=== PATIENT | female | born 1940 | race Caucasian/White ===

== ENCOUNTER 2017-03-12 09:53 | Inpatient (IN) | payer MEDICARE, BC ==
[2017-03-12] MEDS ORDERED: predniSONE 20 MG Tab PO ONE (10:59)
[2017-03-12] MEDS ORDERED: HYDROmorphone 1 MG/ML Syringe IM ONE ×2 (10:59→12:54)
[2017-03-12] MEDS ORDERED: Cyclobenzaprine 10 MG Tab PO ONE (11:42)
[2017-03-12] MEDS ORDERED: Acetaminophen 325 MG Tab PO ONE (11:42)
[2017-03-12] MEDS ORDERED: LORazepam 0.5 MG Tab PO ONE (12:54)
--- NOTE | 2017-03-12 13:41 | EDM.PDOC ---
ED HPI GENERAL MEDICAL PROBLEM - General Chief Complaint: Back Pain or Injury Stated Complaint: [facility] Time Seen by Provider: 03/12/17 10:46 Source of Information: Reports: Patient, RN Notes Reviewed - History of Present Illness INITIAL COMMENTS - FREE TEXT/NARRATIVE: 76-year-old female comes in with severe right low back pain. She had onset of pain yesterday afternoon that has become much worse last evening through the night and this morning. The pain starts in the right low back and radiates down the right lower extremity to the knee. The pain is worse with certain positions but she is not able to obtain a position of complete pain relief. She did try some Motrin at home this morning. That has not helped. She also took a different family members muscle relaxant and that also did not give any meaningful relief. No fever or chills. No bladder symptomatology. No abdominal pain. 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 (see below) Other Treatments MIXING OPERATOR: ibuprofen Lower Back Pain Score (Numeric/FACES): 4 - Related Data Allergies Allergy/AdvReac Type Severity Reaction Status Date / Time No Known Allergies Allergy Verified 03/12/17 10:01 Home Meds: Home Meds Levothyroxine 112 mcg PO DAILY 08/24/14 [History] Past Medical History HEENT History: Reports: Other (See Below) Other HEENT History: dentures Cardiovascular History: Reports: Other (See Below) Other Cardiovascular History: lower extremity edema, palpitations Respiratory History: Reports: SOB Other Respiratory History: mild to moderate snoring Gastrointestinal History: Reports: Inflammatory Bowel Disease Genitourinary History: Reports: None Musculoskeletal History: Reports: Other (See Below) Other Musculoskeletal History: sciatica pain Neurological History: Reports: None Psychiatric History: Reports: ADHD Endocrine/Metabolic History: Reports: Hypothyroidism - Past Surgical History Female Surgical History: Reports: Hysterectomy Musculoskeletal Surgical History: Reports: Knee Replacement, Shoulder Surgery, Other (See Below) Social & Family History - Tobacco Use Smoking Status *Q: Never Smoker Second Hand Smoke Exposure: No - Caffeine Use Caffeine Use: Reports: Coffee, Soda - Alcohol Use Days Per Week of Alcohol Use: 2 - Recreational Drug Use Recreational Drug Use: No ED ROS GENERAL - Review of Systems Review Of Systems: See Below Constitutional: Denies: Fever, Chills HEENT: Denies: Throat Pain Respiratory: Denies: Shortness of Breath, Wheezing Cardiovascular: Denies: Chest Pain GI/Abdominal: Denies: Abdominal Pain, Nausea, Vomiting : Reports: No Symptoms Musculoskeletal: Reports: Back Pain (Right low back pain), Leg Pain (Right leg) Skin: Reports: No Symptoms Neurological: Denies: Numbness, Tingling, Difficulty Walking, Weakness ED EXAM,LOWER BACK PAIN/INJURY - Physical Exam Exam: See Below General Appearance: Alert, No Apparent Distress Eye Exam: Bilateral Eye: PERRL Throat/Mouth: Normal Inspection Head: Atraumatic Neck: Supple, Full Range of Motion Respiratory/Chest: No Respiratory Distress, Lungs Clear, Normal Breath Sounds Cardiovascular: Regular Rate, Rhythm GI/Abdominal: Soft, Non-Tender Back Exam: Other (Tender right low back). No: Paraspinal Tenderness, Vertebral Tenderness Extremities: Other (Pain with straight leg raising right lower extremity). No: Leg Pain, Redness Neurological: Alert, Oriented x 3, Straight Leg Raise (R) (Pain with straight leg raising on the right) Skin Exam: Warm, Dry, Normal Color Course - Vital Signs Last Recorded V/S: Last Vital Signs Temp 98.1 F 03/12/17 10:01 Pulse 78 03/12/17 10:01 Resp 20 03/12/17 10:01 BP 156/68 H 03/12/17 10:01 Pulse Ox 93 L 03/12/17 10:01 - Orders/Labs/Meds Meds: Medications Discontinued Medications Generic Name Dose Route Start Last Admin Trade Name Evy PRN Reason Stop Dose Admin Acetaminophen 975 mg 03/12/17 11:42 03/12/17 11:46 Tylenol PO 03/12/17 11:43 975 mg NOW ONE Administration Cyclobenzaprine HCl 10 mg 03/12/17 11:42 03/12/17 11:46 Flexeril PO 03/12/17 11:43 10 mg ONETIME ONE Administration Hydromorphone HCl 1 mg 03/12/17 10:59 03/12/17 11:09 Dilaudid IM 03/12/17 11:00 1 mg ONETIME ONE Administration Hydromorphone HCl 1 mg 03/12/17 12:54 03/12/17 13:01 Dilaudid IM 03/12/17 12:55 1 mg ONETIME ONE Administration Lorazepam 0.5 mg 03/12/17 12:54 03/12/17 13:00 Ativan PO 03/12/17 12:55 0.5 mg ONETIME ONE Administration Prednisone 40 mg 03/12/17 10:59 03/12/17 11:07 Prednisone PO 03/12/17 11:00 40 mg ONETIME ONE Administration - Re-Assessments/Exams Free Text/Narrative Re-Assessment/Exam: 03/12/17 13:00. The pain extremely difficult time getting control of her discomfort. She had initially been given Dilaudid 1 mg IM along with prednisone 40 mg by mouth. That did not seem to give her any meaningful relief. We then followed with Tylenol 975 by mouth Flexeril 10 mg by mouth. That also gave very minimal relief from baseline on arrival. We have further given Dilaudid 1 mg IM and Ativan 0.5 mg by mouth. 03/12/17 14:50. Patient finally is looking somewhat more comfortable while lying in bed. We did get her up to stand a short time ago and she did struggle with that. Was able to stand and take a few his steps with assistance but did have a lot of discomfort in the right low back with continue radiation to the leg. She is reported to become diaphoretic. Therefore she was allowed to get back to bed rest. Patient does demonstrate a willingness to try go home. However she does live 60 miles from here. Family that is here with her is extremely concerned about how they're going to manage at home when it is been this difficult to get her pain under control here in the ED. Therefore admission for pain management and to figure out a regimen that will be appropriate for her outpatient basis has been arranged. It is expected that this will be an observation status admission. Departure - Departure Time of Disposition: 14:53 Disposition: Admitted As Inpatient 66 Condition: Fair Clinical Impression: Sciatica Qualifiers: Laterality: right Qualified Code(s): M54.31 - Sciatica, right side - Discharge Information Referrals: Yana May ENT CONSULTANT [Primary Care Provider] - Forms: ED Department Discharge ED Communication - Discussed Case With (1) Discussed Case With (1): Admitting Provider (Dr Horta, decision to admit at about 14:35.)
[2017-03-12] MEDS ORDERED: Ondansetron 4 MG/2 ML SDV IVPUSH PRN (16:57)
[2017-03-12] MEDS: HYDROmorphone 1 MG/ML Syringe IVPUSH PRN (17:13)
[2017-03-12] MEDS ORDERED: Sodium Chloride 0.9% 1,000 ML ONE (17:24)
[2017-03-12] MEDS ORDERED: LORazepam 2 MG/ML MDV IVPUSH PRN (17:24)
[2017-03-12] MEDS: Pantoprazole 40 MG Tab.CR PO SCH (17:24)
[2017-03-12] MEDS: fentaNYL 12 MCG/HR Transdermal Patch TRDERM SCH (17:25)
[2017-03-12] MEDS: methylPREDNISolone Sodium Succinate 125 MG/2 ML SDV IVPUSH SCH (17:25)
[2017-03-12] MEDS ORDERED: Sodium Chloride 0.45% 1,000 ML IV SCH (17:30)
--- NOTE | 2017-03-12 17:35 | PCM.HP ---
H&P History of Present Illness - General Date of Service: 03/12/17 Admit Problem/Dx: Admission Diagnosis/Problem Admission Diagnosis/Problem Sciatica Source of Information: Family, Provider History Limitations: Reports: No Limitations - History of Present Illness Initial Comments - Free Text/Narative: 76 year old female with new onset back pain. No recent trauma, has recently had an MRI for assessment of right knee. She reports waking up with pain 1 day prior to admission. The medical regimen in the ED was unsuccessful controlling her pain. She will be admitted to observation. She denied abdominal pain but appears to be restless, is unable to get comfortable. Onset of Symptoms: Reports: Sudden Symptom Onset Date: 03/11/17 Duration of Symptoms: Reports: Hour(s):, Getting Worse Location: Reports: Back Severity: Moderate Improves with: Reports: Medication Worsens with: Reports: Movement Lower Back Pain Score (Numeric/FACES): 4 - Related Data Allergies/Adverse Reactions: Allergies Allergy/AdvReac Type Severity Reaction Status Date / Time No Known Allergies Allergy Verified 03/12/17 16:55 Home Medications: Home Meds Levothyroxine 112 mcg PO DAILY 08/24/14 [History] Ibuprofen 800 mg PO TID PRN 03/12/17 [History] Metaxalone 800 mg PO TID PRN 03/12/17 [History] Past Medical History HEENT History: Reports: Other (See Below) Other HEENT History: dentures Cardiovascular History: Reports: Other (See Below) Other Cardiovascular History: lower extremity edema, palpitations Respiratory History: Reports: SOB Other Respiratory History: mild to moderate snoring Gastrointestinal History: Reports: Inflammatory Bowel Disease Genitourinary History: Reports: None Musculoskeletal History: Reports: Other (See Below) Other Musculoskeletal History: sciatica pain Neurological History: Reports: None Psychiatric History: Reports: ADHD Endocrine/Metabolic History: Reports: Hypothyroidism - Past Surgical History Female Surgical History: Reports: Hysterectomy Musculoskeletal Surgical History: Reports: Knee Replacement, Shoulder Surgery, Other (See Below) Social & Family History - Tobacco Use Smoking Status *Q: Never Smoker Second Hand Smoke Exposure: No - Caffeine Use Caffeine Use: Reports: Coffee, Soda - Alcohol Use Days Per Week of Alcohol Use: 2 - Recreational Drug Use Recreational Drug Use: No H&P Review of Systems - Review of Systems: Review Of Systems: See Below General: Reports: Weakness HEENT: Reports: No Symptoms Pulmonary: Reports: No Symptoms Cardiovascular: Reports: No Symptoms Gastrointestinal: Reports: No Symptoms Genitourinary: Reports: No Symptoms Musculoskeletal: Reports: Back Pain, Leg Pain Skin: Reports: No Symptoms Psychiatric: Reports: No Symptoms Neurological: Reports: No Symptoms Hematologic/Lymphatic: Reports: No Symptoms Immunologic: Reports: No Symptoms Exam - Exam Exam: See Below - Vital Signs Vital Signs: Last Vital Signs Temp 36.2 C 03/12/17 16:16 Pulse 70 03/12/17 16:02 Resp 18 03/12/17 16:02 BP 102/76 03/12/17 17:29 Pulse Ox 96 03/12/17 16:02 Weight: 77.111 kg - Exam General: Alert, Oriented, Cooperative HEENT: Nares Patent, Normal Nasal Septum, Pupils Equal, Pupils Reactive Lungs: Normal Respiratory Effort, Decreased Breath Sounds Cardiovascular: Regular Rate, Regular Rhythm GI/Abdominal Exam: Normal Bowel Sounds, Soft, Non-Tender, No Organomegaly, No Distention (Female) Exam: Deferred Rectal (Female) Exam: Deferred Back Exam: Normal Inspection, CVA Tenderness (L) (no), CVA Tenderness (R) (no), Muscle Spasm (lumbar) Extremities: Normal Inspection Skin: Warm Neurological: Cranial Nerves Intact Neuro Extensive - Mental Status: Alert, Oriented x3 Neuro Extensive - Motor, Sensory, Reflexes: CN II-XII Intact Psychiatric: Alert - Patient Data Result Diagrams: 03/12/17 18:05 03/12/17 18:05 *Q Meaningful Use (ADM) - VTE *Q VTE Criteria *Q: - Stroke *Q Stroke Criteria *Q: - AMI *Q AMI Criteria *Q: - Problem List (1) Back pain of lumbar region with sciatica SNOMED Code(s): 084695012 ICD Code: M54.40 - LUMBAGO WITH SCIATICA, UNSPECIFIED SIDE Status: Acute Current Visit: Yes (2) Hypothyroid SNOMED Code(s): 54373641 ICD Code: E03.9 - HYPOTHYROIDISM, UNSPECIFIED Status: Acute Current Visit : Yes (3) SRINI (obstructive sleep apnea) SNOMED Code(s): 81903101 ICD Code: G47.33 - OBSTRUCTIVE SLEEP APNEA (ADULT) (PEDIATRIC) Status: Acute Current Visit: Yes Problem List Initiated/Reviewed/Updated: Yes Orders Last 24hrs: Active Orders 24 hr Category Date Time Status Patient Status [ADT] Routine ADT 03/12/17 15:49 Active Activity as Tolerated [RC] .Routine Care 03/12/17 17:09 Active Vital Signs [RC] Q4HR Care 03/12/17 17:08 Active Heart Healthy Diet [DIET] Diet 03/12/17 Dinner Active Ang Abdomen [CT] Urgent Exams 03/12/17 17:31 Ordered CTA Abdomen W & W/O Contrast [Ang Abdomen] [CT] Routine Exams 03/12/17 17:23 Stop Req BASIC METABOLIC PANEL,BMP [CHEM] DAILY Lab 03/13/17 05:00 Ordered BASIC METABOLIC PANEL,BMP [CHEM] DAILY Lab 03/14/17 05:00 Ordered BASIC METABOLIC PANEL,BMP [CHEM] DAILY Lab 03/15/17 05:00 Ordered BASIC METABOLIC PANEL,BMP [CHEM] DAILY Lab 03/16/17 05:00 Ordered CBC WITH AUTO DIFF [HEME] Routine Lab 03/12/17 18:00 Ordered CMP [COMPREHENSIVE METABOLIC PN,CMP] [CHEM] Routine Lab 03/12/17 18:00 Ordered CRP [C-REACTIVE PROTEIN] [CHEM] Routine Lab 03/13/17 05:00 Ordered MAGNESIUM [CHEM] Routine Lab 03/12/17 18:00 Ordered TSH [CHEM] Routine Lab 03/13/17 05:00 Ordered URINALYSIS W/MICROSCOPIC [UA W/MICROSCOPIC] [URIN] Lab 03/12/17 16:57 Uncollected Routine HYDROmorphone [Dilaudid] Med 03/12/17 16:54 Active 1 mg IVPUSH Q6H PRN LORazepam [Ativan] Med 03/12/17 17:24 Active 1 mg IVPUSH Q8H PRN Levothyroxine Med 03/13/17 06:00 Active 112 mcg PO ACBRK Ondansetron [Zofran] Med 03/12/17 16:57 Active 4 mg IVPUSH Q8H PRN Pantoprazole [ProTONIX] Med 03/12/17 17:00 Active 40 mg PO BIDAC Remove Patch Med 03/15/17 17:00 Active 1 ea TRDERM Q72H Sodium Chloride 0.9% [Normal Saline] 1,000 ml Med 03/12/17 17:45 Ordered IV ASDIRECTED fentaNYL [Duragesic] Med 03/12/17 17:00 Active 12 mcg TRDERM Q72H methylPREDNISolone Sod Succ [Solu-MEDROL] Med 03/12/17 17:00 Active 125 mg IVPUSH Q8H Resuscitation Status Routine Resus Stat 03/12/17 16:55 Ordered Medication Orders Fentanyl (Duragesic) 12 mcg TRDERM Q72H JENNY Last Admin: 03/12/17 17:25 Dose: 12 mcg Hydromorphone HCl (Dilaudid) 1 mg IVPUSH Q6H PRN PRN Reason: Pain (moderate 4-6) Last Admin: 03/12/17 17:13 Dose: 1 mg Sodium Chloride (Normal Saline) 1,000 mls @ 999 mls/hr IV ASDIRECTED JENNY Levothyroxine Sodium (Levothyroxine) 112 mcg PO ACBRK JENNY Lorazepam (Ativan) 1 mg IVPUSH Q8H PRN PRN Reason: Anxiety Methylprednisolone Sodium Succinate (Solu-Medrol) 125 mg IVPUSH Q8H [facility] Last Admin: 03/12/17 17:25 Dose: 125 mg Miscellaneous Information (Remove Patch) 1 ea TRDERM Q72H [facility] Ondansetron HCl (Zofran) 4 mg IVPUSH Q8H PRN PRN Reason: Nausea/Vomiting Pantoprazole Sodium (Protonix) 40 mg PO BIDAC [facility] Last Admin: 03/12/17 17:24 Dose: 40 mg Assessment/Plan Comment:: Impression: Atypical back pain with restlessness Intractible pain Lab studies have been ordered Chronic Hypothyroidism Plan: Labs on admission IVF 2 liters wide open prep for CTA CTA of aorta re: possible AAA Narcotics/analgesics as needed IV steroid Muscle relaxer SW/PT/OT
[2017-03-12] MEDS: Sodium Chloride 0.9% 1,000 ML IV SCH ×3 (17:46→20:57)
[2017-03-12] MEDS ORDERED: Iopamidol 755 Mg/ML 100 ML Bottle IVPUSH ONE (18:01)
[2017-03-12] MEDS ORDERED: Sodium Chloride 0.9% 10 ML Syringe FLUSH PRN (18:01)
[2017-03-12] MEDS ORDERED: Sodium Chloride 0.9% 100 ML IV SCH (18:15)
[2017-03-12] MEDS: Cyclobenzaprine 10 MG Tab PO PRN (18:59)
--- NOTE | 2017-03-12 19:01 | CT ---
CT chest Technique: Multiple axial sections through the chest are obtained. Intravenous contrast was utilized. Comparison: No prior chest CT, prior chest x-ray of 08/03/16. Findings: Very slight coronary artery calcification is seen. Fluid is seen within the esophagus compatible with reflux. No pericardial thickening is seen. Aorta shows no aneurysm or dissection. Mediastinum and hilar regions show no adenopathy or mass. No axillary adenopathy is seen. Mild atelectasis noted within both lung bases. Lungs otherwise are clear. Bone window settings were reviewed which shows a mild anterior wedge deformity of T6 as well as degenerative disc space narrowing within the lower cervical spine. No acute bony abnormality is seen. Impression: 1. Incidental findings as noted above. No acute abnormality seen. No thoracic aortic aneurysm or thoracic aortic dissection is seen. Diagnostic code #2 CT abdomen and pelvis Technique: Multiple axial sections were obtained from above the dome of the diaphragm inferiorly through the pubic symphysis. Intravenous contrast was utilized. No oral contrast has been given. Comparison: No prior CT exam. Findings: CHD and CBD are mildly dilated as well as mild dilatation of the intrahepatic ducts. Gallbladder is not seen which presumably is due to cholecystectomy although no surgical clips are seen to confirm cholecystectomy, please correlate. Spleen appears within normal limits. Liver shows no focal parenchymal abnormality. Adrenal glands show no nodule. Kidneys show symmetric contrast enhancement without hydronephrosis or mass. Mild arterial calcification is seen within the kidneys. Adrenal glands show no nodule. Pancreas shows atrophy. Aorta shows atherosclerotic change without aneurysmal dilatation. No abdominal aortic aneurysm is seen. No retroperitoneal adenopathy or mesenteric abnormalities are seen. Appendix is not visualized with certainty. Scoliosis and mild degenerative change is noted within the spine. Severe disc space narrowing and vacuum phenomena is seen within the L5-S1 disc. No pelvic mass or adenopathy is seen. Minimal scattered diverticuli are seen within the sigmoid colon. Impression: 1. No abdominal aortic aneurysm or dissection is seen. 2. Intrahepatic and extrahepatic biliary duct dilatation. Gallbladder not seen but no cholecystectomy surgical clips are seen and please correlate. Please exclude any symptoms or signs of bile duct obstruction. If any further questions remain, MRCP could be considered. 3. Other incidental findings as described above. Diagnostic code #3
[2017-03-12] MEDS ORDERED: Sodium Chloride 0.9% 1,000 ML IV SCH (19:44)
[2017-03-12] MEDS: Acetaminophen/HYDROcodone 325-10 MG Tab PO PRN (20:58)
[2017-03-13] MEDS: Acetaminophen/HYDROcodone 325-10 MG Tab PO PRN ×5 (00:39→20:24)
[2017-03-13] MEDS: methylPREDNISolone Sodium Succinate 125 MG/2 ML SDV IVPUSH SCH ×3 (00:40→17:05)
[2017-03-13] MEDS: Pantoprazole 40 MG Tab.CR PO SCH ×2 (06:10→15:44)
[2017-03-13] MEDS: Cyclobenzaprine 10 MG Tab PO PRN ×2 (06:10→14:05)
[2017-03-13] MEDS: Levothyroxine 112 MCG Tab **OWN MED PO SCH (06:11)
[2017-03-13] MEDS: HYDROmorphone 1 MG/ML Syringe IVPUSH PRN ×2 (08:58→22:27)
--- NOTE | 2017-03-13 09:36 | PCM.PN ---
- General Info Date of Service: 03/13/17 Functional Status: Reports: Pain Controlled (mild), Ambulating (minimal) - Review of Systems General: Reports: No Symptoms HEENT: Reports: No Symptoms Pulmonary: Reports: No Symptoms Cardiovascular: Reports: No Symptoms Gastrointestinal: Reports: No Symptoms Genitourinary: Reports: No Symptoms Musculoskeletal: Reports: No Symptoms Skin: Reports: No Symptoms Neurological: Reports: Difficulty Walking (back pain) Psychiatric: Reports: No Symptoms - Patient Data Vitals - Most Recent: Last Vital Signs Temp 36.7 C 03/13/17 04:42 Pulse 89 03/13/17 04:42 Resp 16 03/13/17 04:42 BP 136/62 03/13/17 04:42 Pulse Ox 93 L 03/13/17 04:42 Weight - Most Recent: 78.97 kg I&O - Last 24 Hours: Intake & Output 03/12/17 03/13/17 03/13/17 22:59 06:59 14:59 Intake Total 825 Output Total 325 Balance 500 Lab Results Last 24 Hours: Laboratory Results - last 24 hr 03/12/17 03/12/17 03/13/17 Range/Units 18:05 18:05 00:30 WBC 9.75 (3.98-10.04) K/mm3 RBC 4.54 (3.98-5.22) M/mm3 Hgb 14.3 (11.2-15.7) gm/L Hct 43.1 (34.1-44.9) % MCV 94.9 H (79.4-94.8) fl MCH 31.5 (25.6-32.2) pg MCHC 33.2 (32.2-35.5) g/dl RDW Std Deviation 43.3 (36.4-46.3) fL Plt Count 328 (182-369) K/mm3 MPV 9.1 L (9.4-12.3) fl Neut % (Auto) 86.2 H (34.0-71.1) % Lymph % (Auto) 9.0 L (19.3-51.7) % [place] % (Auto) 4.3 L (4.7-12.5) % Eos % (Auto) 0.1 L (0.7-5.8) Baso % (Auto) 0.2 (0.1-1.2) % Neut # (Auto) 8.40 H (1.56-6.13) K/mm3 Lymph # (Auto) 0.88 L (1.18-3.74) K/mm3 [place] # (Auto) 0.42 H (0.24-0.36) K/mm3 Eos # (Auto) 0.01 L (0.04-0.36) K/mm3 Baso # (Auto) 0.02 (0.01-0.08) K/mm3 Manual Slide Review Normal smear Sodium 142 (136-145) mEq/L Potassium 3.8 (3.5-5.1) mEq/L Chloride 107 (98-107) mEq/L Carbon Dioxide 25 (21-32) mEq/L Anion Gap 13.8 (5-15) BUN 16 (7-18) mg/dL Creatinine 0.9 (0.55-1.02) mg/dL Est Cr Clr Drug Dosing 47.85 mL/min Estimated GFR (MDRD) > 60 (>60) mL/min BUN/Creatinine Ratio 17.8 (14-18) Glucose 118 H (83-115) mg/dL Calcium 8.7 (8.5-10.1) mg/dL Magnesium 2.0 (1.8-2.4) mg/dl Total Bilirubin 0.7 (0.2-1.0) mg/dL AST 33 (15-37) U/L ALT 40 (14-59) U/L Alkaline Phosphatase 86 (46-116) U/L C-Reactive Protein (<1.0) mg/dL Total Protein 6.8 (6.4-8.2) g/dl Albumin 3.4 (3.4-5.0) g/dl Globulin 3.4 gm/dL Albumin/Globulin Ratio 1.0 (1-2) TSH 3rd Generation (0.358-3.74) uIU/mL Urine Color Yellow (Yellow) Urine Appearance Clear (Clear) Urine pH 6.0 (5.0-8.0) Ur Specific [place] 1.020 (1.005-1.030) Urine Protein Negative (Negative) Urine Glucose (UA) Negative (Negative) Urine Ketones 2+ H (Negative) Urine Occult Blood Trace-lysed H (Negative) Urine Nitrite Negative (Negative) Urine Bilirubin Negative (Negative) Urine Urobilinogen 0.2 (0.2-1.0) Ur Leukocyte Esterase Negative (Negative) Urine RBC 0-5 (0-5) /hpf Urine WBC Not seen (0-5) /hpf Ur Epithelial Cells 5-10 H (0-5) /hpf Urine Bacteria Not seen (FEW) /hpf Urine Mucus Few (FEW) /hpf 03/13/17 Range/Units 05:53 WBC (3.98-10.04) K/mm3 RBC (3.98-5.22) M/mm3 Hgb (11.2-15.7) gm/L Hct (34.1-44.9) % MCV (79.4-94.8) fl MCH (25.6-32.2) pg MCHC (32.2-35.5) g/dl RDW Std Deviation (36.4-46.3) fL Plt Count (182-369) K/mm3 MPV (9.4-12.3) fl Neut % (Auto) (34.0-71.1) % Lymph % (Auto) (19.3-51.7) % [place] % (Auto) (4.7-12.5) % Eos % (Auto) (0.7-5.8) Baso % (Auto) (0.1-1.2) % Neut # (Auto) (1.56-6.13) K/mm3 Lymph # (Auto) (1.18-3.74) K/mm3 [place] # (Auto) (0.24-0.36) K/mm3 Eos # (Auto) (0.04-0.36) K/mm3 Baso # (Auto) (0.01-0.08) K/mm3 Manual Slide Review Sodium 140 (136-145) mEq/L Potassium 3.6 (3.5-5.1) mEq/L Chloride 105 (98-107) mEq/L Carbon Dioxide 23 (21-32) mEq/L Anion Gap 15.6 H (5-15) BUN 17 (7-18) mg/dL Creatinine 0.8 (0.55-1.02) mg/dL Est Cr Clr Drug Dosing 53.83 mL/min Estimated GFR (MDRD) > 60 (>60) mL/min BUN/Creatinine Ratio 21.3 H (14-18) Glucose 129 H (83-115) mg/dL Calcium 8.4 L (8.5-10.1) mg/dL Magnesium (1.8-2.4) mg/dl Total Bilirubin (0.2-1.0) mg/dL AST (15-37) U/L ALT (14-59) U/L Alkaline Phosphatase (46-116) U/L C-Reactive Protein 0.3 (<1.0) mg/dL Total Protein (6.4-8.2) g/dl Albumin (3.4-5.0) g/dl Globulin gm/dL Albumin/Globulin Ratio (1-2) TSH 3rd Generation 0.468 (0.358-3.74) uIU/mL Urine Color (Yellow) Urine Appearance (Clear) Urine pH (5.0-8.0) Ur Specific [place] (1.005-1.030) Urine Protein (Negative) Urine Glucose (UA) (Negative) Urine Ketones (Negative) Urine Occult Blood (Negative) Urine Nitrite (Negative) Urine Bilirubin (Negative) Urine Urobilinogen (0.2-1.0) Ur Leukocyte Esterase (Negative) Urine RBC (0-5) /hpf Urine WBC (0-5) /hpf Ur Epithelial Cells (0-5) /hpf Urine Bacteria (FEW) /hpf Urine Mucus (FEW) /hpf Med Orders - Current: Current Medications Hydrocodone Bitart/Acetaminophen ([place] 325-10 Mg) 1 tab PO Q4H PRN PRN Reason: Pain Last Admin: 03/13/17 06:10 Dose: 1 tab Cyclobenzaprine HCl (Flexeril) 10 mg PO Q8H PRN PRN Reason: Muscle Spasm Last Admin: 03/13/17 06:10 Dose: 10 mg Fentanyl (Duragesic) 12 mcg TRDERM Q72H [facility] Last Admin: 03/12/17 17:25 Dose: 12 mcg Hydromorphone HCl (Dilaudid) 1 mg IVPUSH Q6H PRN PRN Reason: Pain (moderate 4-6) Last Admin: 03/13/17 08:58 Dose: 1 mg Sodium Chloride (Normal Saline) 1,000 mls @ 75 mls/hr IV ASDIRECTED [facility] Last Admin: 03/12/17 20:57 Dose: 75 mls/hr Levothyroxine Sodium (Levothyroxine) 112 mcg PO ACBRK [facility] Last Admin: 03/13/17 06:11 Dose: 112 mcg Lorazepam (Ativan) 1 mg IVPUSH Q8H PRN PRN Reason: Anxiety Methylprednisolone Sodium Succinate (Solu-Medrol) 125 mg IVPUSH Q8H [facility] Last Admin: 03/13/17 08:58 Dose: 125 mg Miscellaneous Information (Remove Patch) 1 ea TRDERM Q72H [facility] Ondansetron HCl (Zofran) 4 mg IVPUSH Q8H PRN PRN Reason: Nausea/Vomiting Pantoprazole Sodium (Protonix) 40 mg PO BIDAC [facility] Last Admin: 03/13/17 06:10 Dose: 40 mg Sodium Chloride (Saline Flush) 10 ml FLUSH ONETIME PRN PRN Reason: IV FLUSH Last Admin: 03/12/17 19:23 Dose: 10 ml Discontinued Medications Acetaminophen (Tylenol) 975 mg PO NOW ONE Stop: 03/12/17 11:43 Last Admin: 03/12/17 11:46 Dose: 975 mg Cyclobenzaprine HCl (Flexeril) 10 mg PO ONETIME ONE Stop: 03/12/17 11:43 Last Admin: 03/12/17 11:46 Dose: 10 mg Hydromorphone HCl (Dilaudid) 1 mg IM ONETIME ONE Stop: 03/12/17 11:00 Last Admin: 03/12/17 11:09 Dose: 1 mg Hydromorphone HCl (Dilaudid) 1 mg IM ONETIME ONE Stop: 03/12/17 12:55 Last Admin: 03/12/17 13:01 Dose: 1 mg Sodium Chloride (Sodium Chloride 0.45%) 1,000 mls @ 999 mls/hr IV ASDIRECTED [facility] Sodium Chloride (Normal Saline) Confirm Administered Dose 1,000 mls @ as directed .ROUTE .STK-MED ONE Stop: 03/12/17 17:25 Last Admin: 03/12/17 17:46 Dose: Not Given Sodium Chloride (Normal Saline) 1,000 mls @ 999 mls/hr IV ASDIRECTED [facility] Stop: 03/13/17 18:46 Last Admin: 03/12/17 18:59 Dose: 999 mls/hr Sodium Chloride (Normal Saline) 1,000 mls @ 150 mls/hr IV ASDIRECTED [facility] Sodium Chloride (Normal Saline) 100 mls @ 80 mls/hr IV ASDIRECTED [facility] Last Admin: 03/12/17 19:23 Dose: 80 mls/hr Iopamidol (Isovue-370 (76%)) 100 ml IVPUSH ONETIME ONE Stop: 03/12/17 18:02 Last Admin: 03/12/17 19:23 Dose: 100 ml Lorazepam (Ativan) 0.5 mg PO ONETIME ONE Stop: 03/12/17 12:55 Last Admin: 03/12/17 13:00 Dose: 0.5 mg Prednisone (Prednisone) 40 mg PO ONETIME ONE Stop: 03/12/17 11:00 Last Admin: 03/12/17 11:07 Dose: 40 mg - Exam Quality Assessment: Supplemental Oxygen, DVT Prophylaxis General: Alert, Oriented, Cooperative, Mild Distress HEENT: Pupils Equal, Pupils Reactive, EOMI Neck: Supple, Trachea Midline, No JVD Lungs: Normal Respiratory Effort Cardiovascular: Regular Rate, Regular Rhythm GI/Abdominal Exam: Normal Bowel Sounds, Soft, Non-Tender, No Organomegaly, No Distention (Female) Exam: Deferred Back Exam: Normal Inspection Extremities: Normal Inspection Skin: Warm Neurological: No New Focal Deficit Psy/Mental Status: Alert, Normal Affect, Normal Mood - Problem List & Annotations (1) Back pain of lumbar region with sciatica SNOMED Code(s): 037861775 Code(s): M54.40 - LUMBAGO WITH SCIATICA, UNSPECIFIED SIDE Status: Acute Current Visit: Yes (2) Hypothyroid SNOMED Code(s): 89529299 Code(s): E03.9 - HYPOTHYROIDISM, UNSPECIFIED Status: Acute Current Visit : Yes (3) SRINI (obstructive sleep apnea) SNOMED Code(s): 26577412 Code(s): G47.33 - OBSTRUCTIVE SLEEP APNEA (ADULT) (PEDIATRIC) Status: Acute Current Visit: Yes - Problem List Review Problem List Initiated/Reviewed/Updated: Yes - My Orders Last 24 Hours: My Active Orders 03/12/17 15:49 Patient Status [ADT] Routine 03/12/17 16:54 HYDROmorphone [Dilaudid] 1 mg IVPUSH Q6H PRN 03/12/17 16:55 Resuscitation Status Routine 03/12/17 16:57 Ondansetron [Zofran] 4 mg IVPUSH Q8H PRN 03/12/17 17:00 Pantoprazole [ProTONIX] 40 mg PO BIDAC fentaNYL [Duragesic] 12 mcg TRDERM Q72H methylPREDNISolone Sod Succ [Solu-MEDROL] 125 mg IVPUSH Q8H 03/12/17 17:08 Vital Signs [RC] Q4HR 03/12/17 17:09 Activity as Tolerated [RC] .Routine 03/12/17 17:24 LORazepam [Ativan] 1 mg IVPUSH Q8H PRN 03/12/17 17:50 Antiembolic Devices [RC] QSHIFT ZEE Hose [Antiembolic Hose] [OM.PC] Routine 03/12/17 18:01 Sodium Chloride 0.9% [Saline Flush] 10 ml FLUSH ONETIME PRN 03/12/17 18:38 Cyclobenzaprine [Flexeril] 10 mg PO Q8H PRN 03/12/17 20:07 Acetaminophen/HYDROcodone [[place] 325-10 MG] 1 tab PO Q4H PRN 03/12/17 20:45 Sodium Chloride 0.9% [Normal Saline] 1,000 ml IV ASDIRECTED 03/12/17 Dinner Heart Healthy Diet [DIET] 03/13/17 06:00 Levothyroxine 112 mcg PO ACBRK 03/13/17 08:00 Abdomen Comp [US] Routine 03/14/17 05:00 BASIC METABOLIC PANEL,BMP [CHEM] DAILY 03/15/17 05:00 BASIC METABOLIC PANEL,BMP [CHEM] DAILY 03/15/17 17:00 Remove Patch 1 ea TRDERM Q72H 03/16/17 05:00 BASIC METABOLIC PANEL,BMP [CHEM] DAILY - Plan Plan:: Impression: Atypical back pain with restlessness Intractable pain CTA negative for AAA Chronic Hypothyroidism Plan: Narcotics/analgesics as needed IV steroid Muscle relaxer SW/PT/OT
--- NOTE | 2017-03-13 11:47 | US ---
Abdominal ultrasound: Multiple real-time images of the abdomen were obtained. Comparison: Previous abdominal and pelvic CT exam of 03/12/17. Findings: Liver shows no focal parenchymal abnormality. Dilated common bile duct is seen up to 2.3 cm. Common hepatic duct measures 6 mm. Patient gave a history of prior cholecystectomy. Pancreas shows no discrete abnormality. Aorta shows no aneurysmal dilatation. Kidneys show no hydronephrosis or mass. Right kidney measures 9.9 cm in length. Left kidney measured 10.1 cm in length. Spleen size is normal. Inferior vena cava is patent. Portal vein is patent. Impression: 1. Dilated CBD at 2.3 cm. Etiology is not identified. 2. No additional abnormality is definitely seen on abdominal ultrasound. Diagnostic code #3
[2017-03-13] MEDS: Sodium Chloride 0.9% 1,000 ML IV SCH (17:06)
[2017-03-13] MEDS: Orphenadrine 100 MG Tab.ER PO SCH ×2 (18:15→20:26)
[2017-03-14] MEDS: methylPREDNISolone Sodium Succinate 125 MG/2 ML SDV IVPUSH SCH (01:19)
[2017-03-14] MEDS: Pantoprazole 40 MG Tab.CR PO SCH ×2 (05:33→16:08)
[2017-03-14] MEDS: Acetaminophen/HYDROcodone 325-10 MG Tab PO PRN ×3 (05:33→20:32)
[2017-03-14] MEDS: Levothyroxine 112 MCG Tab **OWN MED PO SCH (05:34)
[2017-03-14] MEDS ORDERED: Gabapentin 100 MG Cap PO ONE (06:23)
[2017-03-14] MEDS: Celecoxib 100 MG Cap PO SCH ×2 (08:08→20:32)
[2017-03-14] MEDS: tiZANidine 4 MG Tab PO PRN ×2 (08:31→16:08)
[2017-03-14] MEDS ORDERED: Sodium Chloride 0.9% 10 ML Syringe FLUSH SCH (11:15)
[2017-03-14] MEDS ORDERED: Gadobenate Dimeglumine 529 MG/ML 20 ML SDV IVPUSH ONE (12:00)
--- NOTE | 2017-03-14 14:02 | MR ---
MRI lumbar spine (without and with contrast) Technique: T1, T2 and T1 fat-suppressed post-gadolinium axial images were obtained from above the L1-L2 disc through the L5-S1 disc. T1, T2, fat-suppressed inversion recovery and T1 fat-suppressed post-gadolinium sagittal images were also obtained through the lumbar spine. Comparison: No previous lumbar spine imaging. Findings: T11-T12 and T12-L1: Posterior discs are preserved. No central canal stenosis or neural foraminal stenosis is seen. L1-L2: Posterior disc is preserved. No central canal stenosis or neural foraminal stenosis is seen. L2-L3: Mild degenerative apophyseal change is seen. Posterior disc is preserved. No central canal stenosis or neural foraminal stenosis is seen. L3-L4: Slight circumferential disc bulge is seen. Posterior disc maintains a minimally concave margin. Disc bulging is seen into both inferior neural foramina. Nerve roots appear to exit without compromise. No central canal stenosis is seen. L4-L5: Slight circumferential disc bulge is seen. Posterior disc maintains a planar margin. Mild degenerative apophyseal change is seen with thickening of the ligamentum flavum. Findings cause minimal central canal stenosis. Disc bulging is seen into both inferior neural foramina. Nerve roots appear to exit without compromise. Degenerative endplate signal change is seen. L5-S1: Moderate to severe disc space narrowing is seen. Lateral osteophytes are noted off the right side. Posterior disc is preserved. Severe degenerative apophyseal change is noted on the right side. Mild degenerative apophyseal change is noted on the left side. No central canal stenosis is seen. Neural foramina are patent where the nerve roots exit. Degenerative endplate signal change is seen. Degenerative dehydration change is seen within the disc most prominent at L4-L5 and L5-S1. No abnormal enhancement is seen. Impression: 1. Degenerative change as noted above. Diagnostic code #3
--- NOTE | 2017-03-14 15:31 | PCM.PN ---
- General Info Date of Service: 03/14/17 Admission Dx/Problem (Free Text): Admission Diagnosis/Problem Admission Diagnosis/Problem Sciatica Julita was admitted with acute on chronic LBP with sciatica, generalized LE weakness due to pain. She was placed on fentanyl patch and muscle relaxant which thus far has not provided relief. Mediation regimen was augmented this morning with gabapentin, trial of tzanidine and addition of celebrex, she is unsure if this is helping or not yet. She has also been using heat. No bowel or bladder dysfunction. Movement is very difficult for her. She underwent MRI of lumbar spine earlier today. Functional Status: Reports: Tolerating Diet, Ambulating, Urinating, Incentive Spirometry. Denies: Pain Controlled, New Symptoms - Review of Systems General: Reports: Weakness HEENT: Reports: No Symptoms Pulmonary: Reports: No Symptoms Cardiovascular: Reports: No Symptoms Gastrointestinal: Reports: No Symptoms Genitourinary: Reports: No Symptoms Musculoskeletal: Reports: Back Pain Neurological: Reports: No Symptoms - Patient Data Vitals - Most Recent: Last Vital Signs Temp 97.5 F 03/14/17 13:06 Pulse 74 03/14/17 13:06 Resp 19 03/14/17 13:06 BP 132/69 03/14/17 13:06 Pulse Ox 95 03/14/17 13:06 Weight - Most Recent: 176 lb 8 oz I&O - Last 24 Hours: Intake & Output 03/14/17 03/14/17 03/14/17 06:59 14:59 22:59 Intake Total 1150 120 Balance 1150 120 Lab Results Last 24 Hours: Laboratory Results - last 24 hr 03/14/17 03/14/17 Range/Units 06:07 06:07 WBC 11.54 H (3.98-10.04) K/mm3 RBC 4.33 (3.98-5.22) M/mm3 Hgb 13.7 (11.2-15.7) gm/L Hct 41.0 (34.1-44.9) % MCV 94.7 (79.4-94.8) fl MCH 31.6 (25.6-32.2) pg MCHC 33.4 (32.2-35.5) g/dl RDW Std Deviation 43.7 (36.4-46.3) fL Plt Count 339 (182-369) K/mm3 MPV 9.7 (9.4-12.3) fl Neut % (Auto) 92.0 H (34.0-71.1) % Lymph % (Auto) 5.9 L (19.3-51.7) % [place] % (Auto) 1.8 L (4.7-12.5) % Eos % (Auto) 0 L (0.7-5.8) Baso % (Auto) 0.0 L (0.1-1.2) % Neut # (Auto) 10.62 H (1.56-6.13) K/mm3 Lymph # (Auto) 0.68 L (1.18-3.74) K/mm3 [place] # (Auto) 0.21 L (0.24-0.36) K/mm3 Eos # (Auto) 0.00 L (0.04-0.36) K/mm3 Baso # (Auto) 0.00 L (0.01-0.08) K/mm3 Manual Slide Review Abnormal smear Sodium 139 (136-145) mEq/L Potassium 3.6 (3.5-5.1) mEq/L Chloride 104 (98-107) mEq/L Carbon Dioxide 24 (21-32) mEq/L Anion Gap 14.6 (5-15) BUN 24 H (7-18) mg/dL Creatinine 0.9 (0.55-1.02) mg/dL Est Cr Clr Drug Dosing 47.85 mL/min Estimated GFR (MDRD) > 60 (>60) mL/min BUN/Creatinine Ratio 26.7 H (14-18) Glucose 132 H (83-115) mg/dL Calcium 8.3 L (8.5-10.1) mg/dL Med Orders - Current: Current Medications Hydrocodone Bitart/Acetaminophen ([place] 325-10 Mg) 1 tab PO Q4H PRN PRN Reason: Pain Last Admin: 03/14/17 12:25 Dose: 1 tab Celecoxib (Celebrex) 100 mg PO BID [facility] Last Admin: 03/14/17 08:08 Dose: 100 mg Fentanyl (Duragesic) 12 mcg TRDERM Q72H [facility] Last Admin: 03/12/17 17:25 Dose: 12 mcg Gabapentin (Neurontin) 100 mg PO BEDTIME [facility] Hydromorphone HCl (Dilaudid) 1 mg IVPUSH Q6H PRN PRN Reason: Pain (moderate 4-6) Last Admin: 03/13/17 22:27 Dose: 1 mg Levothyroxine Sodium (Levothyroxine) 112 mcg PO ACBRK [facility] Last Admin: 03/14/17 05:34 Dose: 112 mcg Lorazepam (Ativan) 1 mg IVPUSH Q8H PRN PRN Reason: Anxiety Miscellaneous Information (Remove Patch) 1 ea TRDERM Q72H [facility] Ondansetron HCl (Zofran) 4 mg IVPUSH Q8H PRN PRN Reason: Nausea/Vomiting Pantoprazole Sodium (Protonix) 40 mg PO BIDAC [facility] Last Admin: 03/14/17 05:33 Dose: 40 mg Sodium Chloride (Saline Flush) 10 ml FLUSH ONETIME PRN PRN Reason: IV FLUSH Last Admin: 03/12/17 19:23 Dose: 10 ml Sodium Chloride (Saline Flush) 10 ml FLUSH ONETIME [facility] Last Admin: 03/14/17 12:18 Dose: 10 ml Tizanidine HCl (Zanaflex) 4 mg PO Q8H PRN PRN Reason: back pain/muscle spasms Last Admin: 03/14/17 08:31 Dose: 4 mg Discontinued Medications Acetaminophen (Tylenol) 975 mg PO NOW ONE Stop: 03/12/17 11:43 Last Admin: 03/12/17 11:46 Dose: 975 mg Cyclobenzaprine HCl (Flexeril) 10 mg PO ONETIME ONE Stop: 03/12/17 11:43 Last Admin: 03/12/17 11:46 Dose: 10 mg Cyclobenzaprine HCl (Flexeril) 10 mg PO Q8H PRN PRN Reason: Muscle Spasm Last Admin: 03/13/17 14:05 Dose: 10 mg Gabapentin (Neurontin) 100 mg PO ONETIME ONE Stop: 03/14/17 06:24 Last Admin: 03/14/17 06:51 Dose: 100 mg Gadobenate Dimeglumine (Multihance) 16 ml IVPUSH ONETIME ONE Stop: 03/14/17 12:01 Last Admin: 03/14/17 12:18 Dose: 16 ml Hydromorphone HCl (Dilaudid) 1 mg IM ONETIME ONE Stop: 03/12/17 11:00 Last Admin: 03/12/17 11:09 Dose: 1 mg Hydromorphone HCl (Dilaudid) 1 mg IM ONETIME ONE Stop: 03/12/17 12:55 Last Admin: 03/12/17 13:01 Dose: 1 mg Sodium Chloride (Sodium Chloride 0.45%) 1,000 mls @ 999 mls/hr IV ASDIRECTED [facility] Sodium Chloride (Normal Saline) Confirm Administered Dose 1,000 mls @ as directed .ROUTE .STK-MED ONE Stop: 03/12/17 17:25 Last Admin: 03/12/17 17:46 Dose: Not Given Sodium Chloride (Normal Saline) 1,000 mls @ 999 mls/hr IV ASDIRECTED [facility] Stop: 03/13/17 18:46 Last Admin: 03/12/17 18:59 Dose: 999 mls/hr Sodium Chloride (Normal Saline) 1,000 mls @ 150 mls/hr IV ASDIRECTED [facility] Sodium Chloride (Normal Saline) 100 mls @ 80 mls/hr IV ASDIRECTED [facility] Last Admin: 03/12/17 19:23 Dose: 80 mls/hr Sodium Chloride (Normal Saline) 1,000 mls @ 75 mls/hr IV ASDIRECTED [facility] Last Admin: 03/13/17 17:06 Dose: 75 mls/hr Iopamidol (Isovue-370 (76%)) 100 ml IVPUSH ONETIME ONE Stop: 03/12/17 18:02 Last Admin: 03/12/17 19:23 Dose: 100 ml Lorazepam (Ativan) 0.5 mg PO ONETIME ONE Stop: 03/12/17 12:55 Last Admin: 03/12/17 13:00 Dose: 0.5 mg Methylprednisolone Sodium Succinate (Solu-Medrol) 125 mg IVPUSH Q8H [facility] Last Admin: 03/14/17 01:19 Dose: 125 mg Orphenadrine Citrate (Norflex) 100 mg PO BID [facility] Last Admin: 03/13/17 20:26 Dose: 100 mg Prednisone (Prednisone) 40 mg PO ONETIME ONE Stop: 03/12/17 11:00 Last Admin: 03/12/17 11:07 Dose: 40 mg - Exam Quality Assessment: DVT Prophylaxis General: Alert, Oriented, Cooperative HEENT: Pupils Equal, EOMI, Mucous Membr. Moist/[place] Neck: Supple Lungs: Clear to Auscultation, Normal Respiratory Effort Cardiovascular: Regular Rate, Regular Rhythm GI/Abdominal Exam: Normal Bowel Sounds, Soft, Non-Tender (Female) Exam: Deferred Back Exam: Muscle Spasm, Paraspinal Tenderness Extremities: Normal Inspection, No Pedal Edema, Normal Capillary Refill, Limited Range of Motion (due to back pain with movement) Peripheral Pulses: 2+: Dorsalis Pedis (L), Dorsalis Pedis (R) Neurological: No New Focal Deficit Psy/Mental Status: Alert, Normal Affect, Normal Mood - Problem List & Annotations (1) Back pain of lumbar region with sciatica SNOMED Code(s): 266002371 Code(s): M54.40 - LUMBAGO WITH SCIATICA, UNSPECIFIED SIDE Status: Acute Priority: High Current Visit: Yes (2) Hypothyroid SNOMED Code(s): 88756513 Code(s): E03.9 - HYPOTHYROIDISM, UNSPECIFIED Status: Chronic Priority: Medium Current Visit: Yes Qualifiers: Hypothyroidism type: unspecified Qualified Code(s): E03.9 - Hypothyroidism , unspecified - Problem List Review Problem List Initiated/Reviewed/Updated: Yes - My Orders Last 24 Hours: My Active Orders 03/14/17 06:25 tiZANidine [Zanaflex] 4 mg PO Q8H PRN 03/14/17 06:26 Cooling Warming Measures [RC] ASDIRECTED Heat Therapy [OM.PC] Routine 03/14/17 06:27 Ambulate [RC] QSHIFT 03/14/17 09:00 Celecoxib [CeleBREX] 100 mg PO BID 03/14/17 21:00 Gabapentin [Neurontin] 100 mg PO BEDTIME - Plan Plan:: I/P: LBP with sciatica; acute on chronic, never been this bad before -Med adjustment this morning with gabapentin, tzanidine and celebrex in addition to fentanyl patch and PO norco. -MRI today, results pending at time of note -Heat/Ice for comfort -PT/OT -Pain is not under good control, will transfer to inpatient status for further monitoring and pain control. -Likely will need aerotriangulation specialist post discharge for further eval/ recommendations Chronic: Hypothyroid- TSH WNL, cont home meds Other: GI/DVT prophylax CM/SW for assist with DC planning- will plan DC once pain under control PT/OT Patient is Full Code status.
[2017-03-14] MEDS ORDERED: Gabapentin 100 MG Cap PO SCH (21:00)
[2017-03-15] MEDS: tiZANidine 4 MG Tab PO PRN ×2 (00:40→08:29)
[2017-03-15] MEDS: Levothyroxine 112 MCG Tab **OWN MED PO SCH (05:04)
[2017-03-15] MEDS: Acetaminophen/HYDROcodone 325-10 MG Tab PO PRN ×2 (05:04→11:07)
[2017-03-15] MEDS: Pantoprazole 40 MG Tab.CR PO SCH ×2 (05:04→15:29)
[2017-03-15] MEDS ORDERED: Potassium Chloride 20 MEQ Tab.ER PO ONE (07:08)
[2017-03-15] MEDS: Celecoxib 100 MG Cap PO SCH ×2 (08:29→20:04)
[2017-03-15] MEDS ORDERED: Lidocaine 5% 700 MG Patch TOP PRN (10:24)
--- NOTE | 2017-03-15 10:43 | PCM.DCSUM1 ---
Discharge Summary - Hospital Course Free Text/Narrative:: 76-year-old female comes into ED with severe right low back pain. She had onset of pain yesterday afternoon that has become much worse last evening through the night and this morning. The pain starts in the right low back and radiates down the right lower extremity to the knee. The pain is worse with certain positions but she is not able to obtain a position of complete pain relief. She did try some Motrin at home this morning. That has not helped. She also took a different family members muscle relaxant and that also did not give any meaningful relief. No fever or chills. No bladder symptomatology. No abdominal pain. Hospitalist is asked to transfer to observation status for pain control. Pain was difficult and initially impossible to control with fentanyl patch and norco, also solumedrol IVP initially and muscle relaxant. Addition of celebrex, tizanadine, celebrex, gabapentin, then lidoderm patch and switched norco to percocet. Gabapentin and tizanadine were scheduled. Patient worked with PT/OT. MRI of lumbar spine was obtained, showing only degenerative changes, no acute findings. She continued to have pain but it did slowly improve. She will be discharged home today with family. Instructed to follow up with PCP, Yana May within one week and consult with Dr. Jones, insurance customer service specialist has been arranged. - Discharge Data Discharge Date: 03/16/17 Discharge Disposition: Home, Self-Care 01 Condition: Good - Discharge Diagnosis/Problem(s) (1) Back pain of lumbar region with sciatica SNOMED Code(s): 433294367 ICD Code: M54.40 - LUMBAGO WITH SCIATICA, UNSPECIFIED SIDE Status: Acute Priority: High Current Visit: Yes (2) Hypothyroid SNOMED Code(s): 90049110 ICD Code: E03.9 - HYPOTHYROIDISM, UNSPECIFIED Status: Chronic Priority: Medium Current Visit: Yes Qualifiers: Hypothyroidism type: unspecified Qualified Code(s): E03.9 - Hypothyroidism , unspecified - Patient Summary/Data Operative Procedure(s) Performed: None Complications: None Consults: Consultations 03/13/17 13:33 Consult to Occupational Therapy [OT Evaluation and Treatment] [CONS] Routine 03/14/17 14:12 Consult to Physical Therapy [PT Evaluation and Treatment] [CONS] Routine Labs Pending at D/C: None Planned Operative Procedure(s) after DC: None Hospital Course: As above - Patient Instructions Diet: Usual Diet as Tolerated, Drink 8-10+ Glasses/Day Activity: As Tolerated Driving: Do Not Drive (while taking narcotic medications/pain patch) Showering/Bathing: May Shower Notify Provider of: Fever, Increased Pain (worsening of numbness/tingling, bowel or bladder dysfunction) - Discharge Plan Prescriptions/Med Rec: Acetaminophen/HYDROcodone [Forrest 325-10 MG] 1 tab PO Q4H PRN #40 tablet PRN Reason: back pain Celecoxib [CeleBREX] 100 mg PO BID #60 cap fentaNYL [Duragesic] 12 mcg TRDERM Q72H #1 box Gabapentin [Neurontin] 100 mg PO TID #60 cap Lidocaine 5% [Lidoderm 5%] 700 mg TOP DAILY PRN #1 box PRN Reason: back pain Pantoprazole [ProTONIX] 40 mg PO BIDAC #60 tab.cr tiZANidine [Zanaflex] 4 mg PO TID #60 tablet Home Medications: Home Meds Levothyroxine 112 mcg PO DAILY 08/24/14 [History] Acetaminophen/HYDROcodone [Forrest 325-10 MG] 1 tab PO Q4H PRN #40 tablet [Rx] Celecoxib [CeleBREX] 100 mg PO BID #60 cap 03/15/17 [Rx] Gabapentin [Neurontin] 100 mg PO TID #60 cap 03/15/17 [Rx] Lidocaine 5% [Lidoderm 5%] 700 mg TOP DAILY PRN #1 box 03/15/17 [Rx] Pantoprazole [ProTONIX] 40 mg PO BIDAC #60 tab.cr 03/15/17 [Rx] fentaNYL [Duragesic] 12 mcg TRDERM Q72H #1 box 03/15/17 [Rx] tiZANidine [Zanaflex] 4 mg PO TID #60 tablet 03/15/17 [Rx] Patient Handouts: Fall Prevention in the Home, [id number], Sciatica With Rehab-SportsMed, Back Pain, Adult, Sciatica, [id number], How to Use a Walker Forms: ED Department Discharge Referrals: Rolando Jones MD [Ordering Only Provider] - ([facility] will call patient after they receive referral and discharge paper work from the hospital. manager fashion will fax information needed to [phone].) Yana May, [employer] [Primary Care Provider] - - Discharge Summary/Plan Comment DC Time >30 min.: Yes (40 min) - General Info Date of Service: 03/16/17 Admission Dx/Problem (Free Text: Admission Diagnosis/Problem Admission Diagnosis/Problem Sciatica Julita was admitted with acute on chronic LBP with sciatica, generalized LE weakness due to pain. She was placed on fentanyl patch and muscle relaxant which provided minimal relief; gabapentin, tizanidine and celebrex was added yesterday. She continues to have back pain; appears quite histrionic as when anyone enters the room she seems to writhe in pain when prior was resting comfortably in bed upon my entrance to the room. States she "can't get comfortable". She is working with PT /OT. I did assist her to BR this morning, she ambulated well with walker independently. Pharmacy review shows/states she has only used tzanidine x 2 in last 24 hours and Forrest x 2 also. Reviewed with her this morning MRI of lumbar spine shows degenerative changes, no acute findings otherwise. Recommend she f/up, consult with insurance customer service specialist for likely steroid injections should they see fit. She is in agreement to this. Functional Status: Reports: Pain Controlled (improved and tolerable now), Tolerating Diet, Ambulating, Urinating - Review of Systems General: Reports: No Symptoms HEENT: Reports: No Symptoms Pulmonary: Reports: No Symptoms. Denies: Shortness of Breath Cardiovascular: Reports: No Symptoms. Denies: Chest Pain Gastrointestinal: Reports: No Symptoms. Denies: Abdominal Pain, Nausea, Vomiting Genitourinary: Reports: No Symptoms, Other (no bowel or bladder dysfunction) Musculoskeletal: Reports: Back Pain, Leg Pain (right leg ) Neurological: Reports: No Symptoms - Patient Data Vitals - Most Recent: Last Vital Signs Temp 97.5 F 03/15/17 08:04 Pulse 76 03/15/17 09:07 Resp 18 03/15/17 08:04 BP 127/76 03/15/17 09:07 Pulse Ox 96 03/15/17 09:07 Weight - Most Recent: 176 lb 8 oz I&O - Last 24 hours: Intake & Output 11/12/2103/15/17 03/15/17 22:59 06:59 14:59 Intake Total 420 200 Output Total 600 Balance -180 200 Lab Results - Last 24 hrs: Laboratory Results - last 24 hr 03/15/17 03/15/17 03/15/17 Range/Units 05:10 05:10 05:10 WBC 10.67 H (3.98-10.04) K/mm3 RBC 4.60 (3.98-5.22) M/mm3 Hgb 14.4 (11.2-15.7) gm/L Hct 43.5 (34.1-44.9) % MCV 94.6 (79.4-94.8) fl MCH 31.3 (25.6-32.2) pg MCHC 33.1 (32.2-35.5) g/dl RDW Std Deviation 43.8 (36.4-46.3) fL Plt Count 335 (182-369) K/mm3 MPV 9.5 (9.4-12.3) fl Neut % (Auto) 69.0 (34.0-71.1) % Lymph % (Auto) 19.7 (19.3-51.7) % [place] % (Auto) 10.8 (4.7-12.5) % Eos % (Auto) 0 L (0.7-5.8) Baso % (Auto) 0.1 (0.1-1.2) % Neut # (Auto) 7.37 H (1.56-6.13) K/mm3 Lymph # (Auto) 2.10 (1.18-3.74) K/mm3 [place] # (Auto) 1.15 H (0.24-0.36) K/mm3 Eos # (Auto) 0.00 L (0.04-0.36) K/mm3 Baso # (Auto) 0.01 (0.01-0.08) K/mm3 Sodium 141 (136-145) mEq/L Potassium 3.3 L (3.5-5.1) mEq/L Chloride 105 (98-107) mEq/L Carbon Dioxide 28 (21-32) mEq/L Anion Gap 11.3 (5-15) BUN 19 H (7-18) mg/dL Creatinine 0.9 (0.55-1.02) mg/dL Est Cr Clr Drug Dosing 47.85 mL/min Estimated GFR (MDRD) > 60 (>60) mL/min BUN/Creatinine Ratio 21.1 H (14-18) Glucose 90 (83-115) mg/dL Calcium 8.3 L (8.5-10.1) mg/dL Magnesium 2.1 (1.8-2.4) mg/dl Med Orders - Current: Current Medications Hydrocodone Bitart/Acetaminophen (Forrest 325-10 Mg) 1 tab PO Q4H PRN PRN Reason: Pain Last Admin: 03/15/17 05:04 Dose: 1 tab Celecoxib (Celebrex) 100 mg PO BID [facility] Last Admin: 03/15/17 08:29 Dose: 100 mg Fentanyl (Duragesic) 12 mcg TRDERM Q72H [facility] Last Admin: 03/12/17 17:25 Dose: 12 mcg Gabapentin (Neurontin) 100 mg PO TID [facility] Levothyroxine Sodium (Levothyroxine) 112 mcg PO ACBRK [facility] Last Admin: 03/15/17 05:04 Dose: 112 mcg Lidocaine (Lidoderm 5%) 700 mg TOP DAILY PRN PRN Reason: back pain Miscellaneous Information (Remove Patch) 1 ea TRDERM Q72H [facility] Ondansetron HCl (Zofran) 4 mg IVPUSH Q8H PRN PRN Reason: Nausea/Vomiting Pantoprazole Sodium (Protonix) 40 mg PO BIDAC [facility] Last Admin: 03/15/17 05:04 Dose: 40 mg Sodium Chloride (Saline Flush) 10 ml FLUSH ONETIME PRN PRN Reason: IV FLUSH Last Admin: 03/12/17 19:23 Dose: 10 ml Sodium Chloride (Saline Flush) 10 ml FLUSH ONETIME [facility] Last Admin: 03/14/17 12:18 Dose: 10 ml Tizanidine HCl (Zanaflex) 4 mg PO Q8H PRN PRN Reason: back pain/muscle spasms Last Admin: 03/15/17 08:29 Dose: 4 mg Tizanidine HCl (Zanaflex) 4 mg PO TID [facility] Discontinued Medications Acetaminophen (Tylenol) 975 mg PO NOW ONE Stop: 03/12/17 11:43 Last Admin: 03/12/17 11:46 Dose: 975 mg Cyclobenzaprine HCl (Flexeril) 10 mg PO ONETIME ONE Stop: 03/12/17 11:43 Last Admin: 03/12/17 11:46 Dose: 10 mg Cyclobenzaprine HCl (Flexeril) 10 mg PO Q8H PRN PRN Reason: Muscle Spasm Last Admin: 03/13/17 14:05 Dose: 10 mg Gabapentin (Neurontin) 100 mg PO ONETIME ONE Stop: 03/14/17 06:24 Last Admin: 03/14/17 06:51 Dose: 100 mg Gabapentin (Neurontin) 100 mg PO BEDTIME [facility] Last Admin: 03/14/17 20:32 Dose: 100 mg Gadobenate Dimeglumine (Multihance) 16 ml IVPUSH ONETIME ONE Stop: 03/14/17 12:01 Last Admin: 03/14/17 12:18 Dose: 16 ml Hydromorphone HCl (Dilaudid) 1 mg IM ONETIME ONE Stop: 03/12/17 11:00 Last Admin: 03/12/17 11:09 Dose: 1 mg Hydromorphone HCl (Dilaudid) 1 mg IM ONETIME ONE Stop: 03/12/17 12:55 Last Admin: 03/12/17 13:01 Dose: 1 mg Hydromorphone HCl (Dilaudid) 1 mg IVPUSH Q6H PRN PRN Reason: Pain (moderate 4-6) Last Admin: 03/13/17 22:27 Dose: 1 mg Sodium Chloride (Sodium Chloride 0.45%) 1,000 mls @ 999 mls/hr IV ASDIRECTED [facility] Sodium Chloride (Normal Saline) Confirm Administered Dose 1,000 mls @ as directed .ROUTE .STK-MED ONE Stop: 03/12/17 17:25 Last Admin: 03/12/17 17:46 Dose: Not Given Sodium Chloride (Normal Saline) 1,000 mls @ 999 mls/hr IV ASDIRECTED [facility]NY Stop: 03/13/17 18:46 Last Admin: 03/12/17 18:59 Dose: 999 mls/hr Sodium Chloride (Normal Saline) 1,000 mls @ 150 mls/hr IV ASDIRECTED [facility] Sodium Chloride (Normal Saline) 100 mls @ 80 mls/hr IV ASDIRECTED [facility] Last Admin: 03/12/17 19:23 Dose: 80 mls/hr Sodium Chloride (Normal Saline) 1,000 mls @ 75 mls/hr IV ASDIRECTED [facility] Last Admin: 03/13/17 17:06 Dose: 75 mls/hr Iopamidol (Isovue-370 (76%)) 100 ml IVPUSH ONETIME ONE Stop: 03/12/17 18:02 Last Admin: 03/12/17 19:23 Dose: 100 ml Lorazepam (Ativan) 0.5 mg PO ONETIME ONE Stop: 03/12/17 12:55 Last Admin: 03/12/17 13:00 Dose: 0.5 mg Lorazepam (Ativan) 1 mg IVPUSH Q8H PRN PRN Reason: Anxiety Methylprednisolone Sodium Succinate (Solu-Medrol) 125 mg IVPUSH Q8H [facility] Last Admin: 03/14/17 01:19 Dose: 125 mg Orphenadrine Citrate (Norflex) 100 mg PO BID [facility] Last Admin: 03/13/17 20:26 Dose: 100 mg Potassium Chloride (Klor-Con M20) 40 meq PO ONETIME ONE Stop: 03/15/17 07:09 Last Admin: 03/15/17 08:29 Dose: 40 meq Prednisone (Prednisone) 40 mg PO ONETIME ONE Stop: 03/12/17 11:00 Last Admin: 03/12/17 11:07 Dose: 40 mg - Exam Quality Assessment: Reports: DVT Prophylaxis General: Reports: Alert, Oriented, Cooperative HEENT: Reports: Pupils Equal, EOMI, Mucous Membr. Moist/[place] Neck: Reports: Supple, No JVD Lungs: Reports: Clear to Auscultation, Normal Respiratory Effort Cardiovascular: Reports: Regular Rate, Regular Rhythm GI/Abdominal Exam: Normal Bowel Sounds, Soft, Non-Tender (Female) Exam: Deferred Rectal (Female) Exam: Deferred Back Exam: Reports: Normal Inspection, Paraspinal Tenderness, Other (overly exaggerated response with placing my fingers on her right low back. ). Denies: Vertebral Tenderness Extremities: No Pedal Edema, Normal Capillary Refill Neurological: Reports: No New Focal Deficit, Normal Speech, Normal Tone, Strength Equal Bilateral Psy/Mental Status: Reports: Alert, Normal Affect, Normal Mood *Q Meaningful Use (DIS) - VTE *Q VTE Criteria *Q: - Stroke *Q Stroke Criteria *Q: - AMI *Q AMI Criteria *Q:
[2017-03-15] MEDS ORDERED: Acetaminophen/oxyCODONE 325-5 MG Tab PO PRN (13:03)
[2017-03-15] MEDS: Acetaminophen/oxyCODONE 325-5 MG Tab PO PRN ×2 (13:43→20:05)
--- NOTE | 2017-03-15 15:07 | PCM.PN ---
- General Info Date of Service: 03/15/17 Admission Dx/Problem (Free Text): Admission Diagnosis/Problem Admission Diagnosis/Problem Sciatica Julita was admitted with acute on chronic LBP with sciatica, generalized LE weakness due to pain. She was placed on fentanyl patch and muscle relaxant which provided minimal relief; gabapentin, tizanidine and celebrex was added yesterday. She continues to have back pain; appears quite histrionic as when anyone enters the room she seems to writhe in pain when prior was resting comfortably in bed upon my entrance to the room. States she "can't get comfortable". She is working with PT /OT. I did assist her to BR this morning, she ambulated well with walker independently. Pharmacy review shows/states she has only used tzanidine x 2 in last 24 hours and Corn[place] x 2 also. Reviewed with her this morning MRI of lumbar spine shows degenerative changes, no acute findings otherwise. Recommend she f/up, consult with retail operations specialist for likely steroid injections should they see fit. She is in agreement to this. She continues to have pain much of today, I did see her on two occasions today, one in morning and on just now. Corn[place] has been changed to Percocet with some improvements noted. I have also increased her gabapentin and scheduled the muscle relaxant for TID. Functional Status: Reports: Tolerating Diet, Ambulating, Urinating. Denies: Pain Controlled - Review of Systems General: Reports: Weakness HEENT: Reports: No Symptoms Pulmonary: Reports: No Symptoms. Denies: Shortness of Breath Cardiovascular: Reports: No Symptoms. Denies: Chest Pain Gastrointestinal: Reports: No Symptoms. Denies: Abdominal Pain, Diarrhea, Nausea Musculoskeletal: Reports: Back Pain, Leg Pain (right) Neurological: Reports: No Symptoms - Patient Data Vitals - Most Recent: Last Vital Signs Temp 97.9 F 03/15/17 12:55 Pulse 69 03/15/17 12:55 Resp 19 03/15/17 12:55 BP 125/83 03/15/17 12:55 Pulse Ox 95 03/15/17 12:55 Weight - Most Recent: 176 lb 8 oz I&O - Last 24 Hours: Intake & Output 03/15/17 03/15/17 03/15/17 06:59 14:59 22:59 Intake Total 200 240 Balance 200 240 Lab Results Last 24 Hours: Laboratory Results - last 24 hr 03/15/17 03/15/17 03/15/17 Range/Units 05:10 05:10 05:10 WBC 10.67 H (3.98-10.04) K/mm3 RBC 4.60 (3.98-5.22) M/mm3 Hgb 14.4 (11.2-15.7) gm/L Hct 43.5 (34.1-44.9) % MCV 94.6 (79.4-94.8) fl MCH 31.3 (25.6-32.2) pg MCHC 33.1 (32.2-35.5) g/dl RDW Std Deviation 43.8 (36.4-46.3) fL Plt Count 335 (182-369) K/mm3 MPV 9.5 (9.4-12.3) fl Neut % (Auto) 69.0 (34.0-71.1) % Lymph % (Auto) 19.7 (19.3-51.7) % [place] % (Auto) 10.8 (4.7-12.5) % Eos % (Auto) 0 L (0.7-5.8) Baso % (Auto) 0.1 (0.1-1.2) % Neut # (Auto) 7.37 H (1.56-6.13) K/mm3 Lymph # (Auto) 2.10 (1.18-3.74) K/mm3 [place] # (Auto) 1.15 H (0.24-0.36) K/mm3 Eos # (Auto) 0.00 L (0.04-0.36) K/mm3 Baso # (Auto) 0.01 (0.01-0.08) K/mm3 Sodium 141 (136-145) mEq/L Potassium 3.3 L (3.5-5.1) mEq/L Chloride 105 (98-107) mEq/L Carbon Dioxide 28 (21-32) mEq/L Anion Gap 11.3 (5-15) BUN 19 H (7-18) mg/dL Creatinine 0.9 (0.55-1.02) mg/dL Est Cr Clr Drug Dosing 47.85 mL/min Estimated GFR (MDRD) > 60 (>60) mL/min BUN/Creatinine Ratio 21.1 H (14-18) Glucose 90 (83-115) mg/dL Calcium 8.3 L (8.5-10.1) mg/dL Magnesium 2.1 (1.8-2.4) mg/dl Med Orders - Current: Current Medications Celecoxib (Celebrex) 100 mg PO BID [facility] Last Admin: 03/15/17 08:29 Dose: 100 mg Fentanyl (Duragesic) 12 mcg TRDERM Q72H [facility] Last Admin: 03/12/17 17:25 Dose: 12 mcg Gabapentin (Neurontin) 100 mg PO TID [facility] Levothyroxine Sodium (Levothyroxine) 112 mcg PO ACBRK [facility] Last Admin: 03/15/17 05:04 Dose: 112 mcg Lidocaine (Lidoderm 5%) 700 mg TOP DAILY PRN PRN Reason: back pain Last Admin: 03/15/17 11:01 Dose: 700 mg Miscellaneous Information (Remove Patch) 1 ea TRDERM Q72H [facility] Ondansetron HCl (Zofran) 4 mg IVPUSH Q8H PRN PRN Reason: Nausea/Vomiting Oxycodone/Acetaminophen (Percocet 325-5 Mg) 1 - 2 tab PO Q6H PRN PRN Reason: Pain Last Admin: 03/15/17 13:43 Dose: 2 tab Pantoprazole Sodium (Protonix) 40 mg PO BIDAC [facility] Last Admin: 03/15/17 05:04 Dose: 40 mg Sodium Chloride (Saline Flush) 10 ml FLUSH ONETIME PRN PRN Reason: IV FLUSH Last Admin: 03/12/17 19:23 Dose: 10 ml Sodium Chloride (Saline Flush) 10 ml FLUSH ONETIME [facility] Last Admin: 03/14/17 12:18 Dose: 10 ml Tizanidine HCl (Zanaflex) 4 mg PO Q8H PRN PRN Reason: back pain/muscle spasms Last Admin: 03/15/17 08:29 Dose: 4 mg Tizanidine HCl (Zanaflex) 4 mg PO TID [facility] Discontinued Medications Acetaminophen (Tylenol) 975 mg PO NOW ONE Stop: 03/12/17 11:43 Last Admin: 03/12/17 11:46 Dose: 975 mg Hydrocodone Bitart/Acetaminophen ([place] 325-10 Mg) 1 tab PO Q4H PRN PRN Reason: Pain Last Admin: 03/15/17 11:07 Dose: 1 tab Cyclobenzaprine HCl (Flexeril) 10 mg PO ONETIME ONE Stop: 03/12/17 11:43 Last Admin: 03/12/17 11:46 Dose: 10 mg Cyclobenzaprine HCl (Flexeril) 10 mg PO Q8H PRN PRN Reason: Muscle Spasm Last Admin: 03/13/17 14:05 Dose: 10 mg Gabapentin (Neurontin) 100 mg PO ONETIME ONE Stop: 03/14/17 06:24 Last Admin: 03/14/17 06:51 Dose: 100 mg Gabapentin (Neurontin) 100 mg PO BEDTIME [facility] Last Admin: 03/14/17 20:32 Dose: 100 mg Gadobenate Dimeglumine (Multihance) 16 ml IVPUSH ONETIME ONE Stop: 03/14/17 12:01 Last Admin: 03/14/17 12:18 Dose: 16 ml Hydromorphone HCl (Dilaudid) 1 mg IM ONETIME ONE Stop: 03/12/17 11:00 Last Admin: 03/12/17 11:09 Dose: 1 mg Hydromorphone HCl (Dilaudid) 1 mg IM ONETIME ONE Stop: 03/12/17 12:55 Last Admin: 03/12/17 13:01 Dose: 1 mg Hydromorphone HCl (Dilaudid) 1 mg IVPUSH Q6H PRN PRN Reason: Pain (moderate 4-6) Last Admin: 03/13/17 22:27 Dose: 1 mg Sodium Chloride (Sodium Chloride 0.45%) 1,000 mls @ 999 mls/hr IV ASDIRECTED [facility] Sodium Chloride (Normal Saline) Confirm Administered Dose 1,000 mls @ as directed .ROUTE .STK-MED ONE Stop: 03/12/17 17:25 Last Admin: 03/12/17 17:46 Dose: Not Given Sodium Chloride (Normal Saline) 1,000 mls @ 999 mls/hr IV ASDIRECTED [facility] Stop: 03/13/17 18:46 Last Admin: 03/12/17 18:59 Dose: 999 mls/hr Sodium Chloride (Normal Saline) 1,000 mls @ 150 mls/hr IV ASDIRECTED [facility] Sodium Chloride (Normal Saline) 100 mls @ 80 mls/hr IV ASDIRECTED [facility] Last Admin: 03/12/17 19:23 Dose: 80 mls/hr Sodium Chloride (Normal Saline) 1,000 mls @ 75 mls/hr IV ASDIRECTED [facility] Last Admin: 03/13/17 17:06 Dose: 75 mls/hr Iopamidol (Isovue-370 (76%)) 100 ml IVPUSH ONETIME ONE Stop: 03/12/17 18:02 Last Admin: 03/12/17 19:23 Dose: 100 ml Lorazepam (Ativan) 0.5 mg PO ONETIME ONE Stop: 03/12/17 12:55 Last Admin: 03/12/17 13:00 Dose: 0.5 mg Lorazepam (Ativan) 1 mg IVPUSH Q8H PRN PRN Reason: Anxiety Methylprednisolone Sodium Succinate (Solu-Medrol) 125 mg IVPUSH Q8H [facility] Last Admin: 03/14/17 01:19 Dose: 125 mg Orphenadrine Citrate (Norflex) 100 mg PO BID [facility] Last Admin: 03/13/17 20:26 Dose: 100 mg Oxycodone/Acetaminophen (Percocet 325-5 Mg) 1 tab PO Q6H PRN PRN Reason: Pain Potassium Chloride (Klor-Con M20) 40 meq PO ONETIME ONE Stop: 03/15/17 07:09 Last Admin: 03/15/17 08:29 Dose: 40 meq Prednisone (Prednisone) 40 mg PO ONETIME ONE Stop: 03/12/17 11:00 Last Admin: 03/12/17 11:07 Dose: 40 mg - Exam Quality Assessment: DVT Prophylaxis General: Alert, Oriented, Cooperative HEENT: Pupils Equal, EOMI, Mucous Membr. Moist/[place] Neck: Supple Lungs: Clear to Auscultation, Normal Respiratory Effort Cardiovascular: Regular Rate, Regular Rhythm, No Murmurs GI/Abdominal Exam: Normal Bowel Sounds, Soft, Non-Tender (Female) Exam: Deferred Extremities: Normal Inspection, No Pedal Edema Peripheral Pulses: 2+: Dorsalis Pedis (L), Dorsalis Pedis (R) Neurological: Normal Speech, Normal Tone, Strength Equal Bilateral (to LE bilat ; pain with raising rt leg against resistance to her rt low back) Psy/Mental Status: Alert - Problem List & Annotations (1) Back pain of lumbar region with sciatica SNOMED Code(s): 652767392 Code(s): M54.40 - LUMBAGO WITH SCIATICA, UNSPECIFIED SIDE Status: Acute Priority: High Current Visit: Yes (2) Hypothyroid SNOMED Code(s): 94252886 Code(s): E03.9 - HYPOTHYROIDISM, UNSPECIFIED Status: Chronic Priority: Medium Current Visit: Yes Qualifiers: Hypothyroidism type: unspecified Qualified Code(s): E03.9 - Hypothyroidism , unspecified - Problem List Review Problem List Initiated/Reviewed/Updated: Yes - My Orders Last 24 Hours: My Active Orders 03/15/17 10:24 Lidocaine 5% [Lidoderm 5%] 700 mg TOP DAILY PRN 03/15/17 13:05 Acetaminophen/oxyCODONE [Percocet 325-5 MG] 1 - 2 tab PO Q6H PRN 03/15/17 15:00 Gabapentin [Neurontin] 100 mg PO TID tiZANidine [Zanaflex] 4 mg PO TID - Plan Plan:: I/P: LBP with sciatica; acute on chronic, never been this bad before -Med adjustment again this afternoon with gabapentin and tzanidine scheduled TID. Change [place] to Percocet. Continue on Celebrex and Fentanyl patch 12mcg. -MRI with findings of degenerative changes -Heat/Ice for comfort -PT/OT -Pain is still not under adequate control. Decision to keep patient overnight to achieve better pain control with above noted regimen; she rates pain at 8/10 now. I do not think she is safe for DC home today and recommend one more night of adjusting to medication changes above for toleration and pain control. -Will need retail operations specialist post discharge for further eval/recommendations; Recommend consult with Dr. Jones, CM will arrange appt. Chronic: Hypothyroid- TSH WNL, cont home meds Other: GI/DVT prophylax CM/SW for assist with DC planning- will plan DC once pain under control--- likely dc home tomorrow am with family PT/OT Patient is Full Code status.
[2017-03-15] MEDS: tiZANidine 4 MG Tab PO SCH ×2 (15:29→20:04)
[2017-03-15] MEDS: Gabapentin 100 MG Cap PO SCH ×2 (15:29→20:05)
[2017-03-15] MEDS: fentaNYL 12 MCG/HR Transdermal Patch TRDERM SCH (16:52)
[2017-03-16] MEDS ORDERED: Temazepam 15 MG Cap PO PRN (00:26)
[2017-03-16] MEDS: Pantoprazole 40 MG Tab.CR PO SCH (05:40)
[2017-03-16] MEDS: Levothyroxine 112 MCG Tab **OWN MED PO SCH (05:40)
[2017-03-16] MEDS: Acetaminophen/oxyCODONE 325-5 MG Tab PO PRN ×2 (05:40→11:44)
[2017-03-16] MEDS ORDERED: Magnesium Hydroxide 400 MG/5 ML Susp 30 ML Cup PO ONE (06:00)
[2017-03-16] MEDS ORDERED: Potassium Chloride 20 MEQ Tab.ER PO ONE (09:15)
[2017-03-16 09:20] VITALS: BP 128/83
[2017-03-16] MEDS: Gabapentin 100 MG Cap PO SCH (09:23)
[2017-03-16] MEDS: Celecoxib 100 MG Cap PO SCH (09:23)
[2017-03-16] MEDS: tiZANidine 4 MG Tab PO SCH (09:23)
[2017-03-16] MEDS: tiZANidine 4 MG Tab PO PRN (13:38)
== END 2017-03-16 15:03 | disposition still patient (30) | DRG 552 ==
LOC: JD.ED 09:53 → JD.MS 15:44 → OBSVTOIN 15:44 → INTOOBSV 15:44 → JD.MS 03-14 13:32 → OBSVTOIN 03-14 13:32
PROVIDERS: ADMIT Internal Medicine Cardiovascular Disease; ATTEND Internal Medicine Cardiovascular Disease
DX: M54.31 Sciatica, right side (principal); M54.41 Lumbago with sciatica, right side; G89.29 Other chronic pain; E03.9 Hypothyroidism, unspecified; G47.33 Obstructive sleep apnea (adult) (pediatric); Z96.659 Presence of unspecified artificial knee joint; Z79.899 Other long term (current) drug therapy
CPT/HCPCS: 36415 ×3; 71260; 72158; 74177; 76700; 80048 ×2; 80053; 81001; 83735; 84443; 85025 ×2; 86140; 96372; 97110 ×4; 97162; 97166; 97530 ×2; 99285; A9270 ×26; A9577; J1170 ×5; J2930 ×5; J7030; J7040 ×4; J7050 ×2; Q9967; 96361; 96374; 96375; 96376; 97116-GP; 97163-GP; 99219; 99224; 99231; 99239; 99284; G0378

== ENCOUNTER 2017-05-19 14:09 | Observation (INO) | payer MEDICARE, BC ==
[2017-05-19] MEDS ORDERED: Sodium Chloride 0.9% 10 ML Syringe FLUSH PRN ×2 (15:18→17:57)
--- NOTE | 2017-05-19 16:27 | EDM.PDOC ---
ED HPI GENERAL MEDICAL PROBLEM - General Chief Complaint: Lower Extremity Injury/Pain Stated Complaint: LEG SWELLING Time Seen by Provider: 05/19/17 14:45 Source of Information: Reports: Patient, RN Notes Reviewed - History of Present Illness INITIAL COMMENTS - FREE TEXT/NARRATIVE: 76-year-old female comes in with left leg pain and swelling. He began having some discomfort in the left groin area about 4 days ago. Over the last 2 days the left lower extremity has become very swollen with discomfort with certain types of motion or pressure on the leg. She is not aware of any particular injury. She's had no chest pain or difficulty breathing. No fever or chills. Prior history of blood clots. 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 - Related Data Allergies Allergy/AdvReac Type Severity Reaction Status Date / Time No Known Allergies Allergy Verified 05/19/17 14:29 Home Meds: Home Meds Levothyroxine 112 mcg PO DAILY 08/24/14 [History] Past Medical History HEENT History: Reports: Other (See Below) Other HEENT History: dentures Cardiovascular History: Reports: Other (See Below) Other Cardiovascular History: lower extremity edema, palpitations Respiratory History: Reports: SOB Other Respiratory History: mild to moderate snoring Gastrointestinal History: Reports: GERD, Inflammatory Bowel Disease Genitourinary History: Reports: None Musculoskeletal History: Reports: Other (See Below) Other Musculoskeletal History: sciatica pain, swelling to left leg currently Neurological History: Reports: None Psychiatric History: Reports: ADHD Endocrine/Metabolic History: Reports: Hypothyroidism - Infectious Disease History Infectious Disease History: Reports: Measles - Past Surgical History Female Surgical History: Reports: Hysterectomy Musculoskeletal Surgical History: Reports: Knee Replacement, Shoulder Surgery Social & Family History - Family History Family Medical History: Noncontributory - Tobacco Use Smoking Status *Q: Former Smoker Years of Tobacco use: 10 Used Tobacco, but Quit: Yes Month Tobacco Last Used: 1989 Second Hand Smoke Exposure: No - Caffeine Use Caffeine Use: Reports: Coffee Other Caffeine Use: 1 cup of coffee/day and 1 diet coke/day - Alcohol Use Days Per Week of Alcohol Use: 1 Number of Drinks Per Day: 1 Total Drinks Per Week: 1 - Recreational Drug Use Recreational Drug Use: No Review of Systems - Review of Systems Review Of Systems: See Below Constitutional: Denies: Chills, Diaphoresis, Fever Mouth/Throat: Reports: No Symptoms Respiratory: Denies: Shortness of Breath, Wheezing, Pleuritic Chest Pain, Cough , Hemoptysis Cardiovascular: Denies: Chest Pain GI/Abdominal: Denies: Abdominal Pain, Nausea, Vomiting Musculoskeletal: Reports: Leg Pain (Entire left lower extremity), Other ( Worsening swelling of the entire left lower extremity) Skin: Reports: Mottled ( left lower extremitymild left lower extremity ), Rash, Erythema (Left lower extremity) Neurological: Denies: Numbness, Tingling ED EXAM, GENERAL - Physical Exam Exam: See Below General Appearance: Alert Eye Exam: Bilateral Eye: PERRL Throat/Mouth: Normal Inspection, Normal Oropharynx Head: Atraumatic. No: Facial Swelling Neck: Supple, Full Range of Motion Respiratory/Chest: No Respiratory Distress, Lungs Clear, Normal Breath Sounds. No: Rhonchi, Wheezing Cardiovascular: Regular Rate, Rhythm GI/Abdominal: Non-Tender Back Exam: No: CVA Tenderness (L), CVA Tenderness (R) Extremities: Pedal Edema (Diffuse edema swelling of the entire left lower extremity), Leg Pain (There is posterior calf tenderness and also upper anterior leg tenderness), Increased Warmth (Entire left lower extremity is mildly warm), Redness (Mild diffuse erythematous rash entire left lower extremity) Neurological: No Motor/Sensory Deficits Skin Exam: Warm, Dry EKG INTERPRETATION EKG Date: 05/19/17 Rhythm: NSR [place]: Normal P-Wave: Present QRS: Normal ST-T: Normal Course - Vital Signs Last Recorded V/S: Last Vital Signs Temp 97.2 F 05/19/17 14:20 Pulse 77 05/19/17 14:20 Resp 12 05/19/17 14:20 BP 133/83 05/19/17 14:20 Pulse Ox 96 05/19/17 14:20 - Orders/Labs/Meds Orders: Active Orders 24 hr Category Date Time Status EKG 12 Lead [EKG Documentation Completion] [RC] STAT Care 05/19/17 15:19 Active Peripheral IV Care [RC] . DIRECTED Care 05/19/17 15:19 Active Sodium Chloride 0.9% [Saline Flush] Med 05/19/17 15:18 Active 10 ml FLUSH ASDIRECTED PRN Peripheral IV Insertion Adult [OM.PC] Stat Oth 05/19/17 15:19 Ordered Medication Orders Sodium Chloride (Saline Flush) 10 ml FLUSH ASDIRECTED PRN PRN Reason: Keep Vein Open Last Admin: 05/19/17 15:41 Dose: 10 ml Labs: Laboratory Tests 05/19/17 05/19/17 05/19/17 Range/Units 15:40 15:40 15:40 WBC 7.91 (3.98-10.04) K/mm3 RBC 4.23 (3.98-5.22) M/mm3 Hgb 13.6 (11.2-15.7) gm/L Hct 41.4 (34.1-44.9) % MCV 97.9 H (79.4-94.8) fl MCH 32.2 (25.6-32.2) pg MCHC 32.9 (32.2-35.5) g/dl RDW Std Deviation 47.9 H (36.4-46.3) fL Plt Count 207 (182-369) K/mm3 MPV 9.3 L (9.4-12.3) fl Neut % (Auto) 66.9 (34.0-71.1) % Lymph % (Auto) 15.9 L (19.3-51.7) % [place] % (Auto) 13.8 H (4.7-12.5) % Eos % (Auto) 2.7 (0.7-5.8) Baso % (Auto) 0.4 (0.1-1.2) % Neut # (Auto) 5.30 (1.56-6.13) K/mm3 Lymph # (Auto) 1.26 (1.18-3.74) K/mm3 [place] # (Auto) 1.09 H (0.24-0.36) K/mm3 Eos # (Auto) 0.21 (0.04-0.36) K/mm3 Baso # (Auto) 0.03 (0.01-0.08) K/mm3 D-Dimer, Quantitative 29.55 H (0.19-0.59) mg/L Sodium 140 (136-145) mEq/L Potassium 3.8 (3.5-5.1) mEq/L Chloride 101 (98-107) mEq/L Carbon Dioxide 30 (21-32) mEq/L Anion Gap 12.8 (5-15) BUN 17 (7-18) mg/dL Creatinine 1.0 (0.55-1.02) mg/dL Est Cr Clr Drug Dosing 43.07 mL/min Estimated GFR (MDRD) 54 (>60) mL/min BUN/Creatinine Ratio 17.0 (14-18) Glucose 94 (83-115) mg/dL Calcium 10.0 (8.5-10.1) mg/dL Total Bilirubin 0.8 (0.2-1.0) mg/dL AST 18 (15-37) U/L ALT 18 (14-59) U/L Alkaline Phosphatase 86 (46-116) U/L Total Protein 7.1 (6.4-8.2) g/dl Albumin 3.4 (3.4-5.0) g/dl Globulin 3.7 gm/dL Albumin/Globulin Ratio 0.9 L (1-2) Meds: Medications Generic Name Dose Route Start Last Admin Trade Name Freq PRN Reason Stop Dose Admin Sodium Chloride 10 ml 05/19/17 15:18 05/19/17 15:41 Saline Flush FLUSH 10 ml ASDIRECTED PRN Administration Keep Vein Open Discontinued Medications Generic Name Dose Route Start Last Admin Trade Name Freq PRN Reason Stop Dose Admin Enoxaparin Sodium 70 mg 05/19/17 16:39 05/19/17 16:56 Lovenox SUBCUT 05/19/17 16:40 70 mg ONETIME ONE Administration - Re-Assessments/Exams Free Text/Narrative Re-Assessment/Exam: 05/19/17 17:08 D-dimer did come back elevated as expected, 29.55. US of the left lower extremity does show extensive deep venous thrombosis evolving the left common femoral, superficial femoral,profunda femoris, and popliteal veins. Incomplete clot seen in the peroneal and posterior tibial veins greater saphenous vein patent. See radiology report for details. 05/19/17 17:40. She has very extensive clot in her left lower extremity, see radiology report. Regression of leg swelling has been rapid over just the last 24-48 hours. This patient deserves careful monitoring. Although she has no clinical evidence for PE at this time she certainly is at least moderately high risk. A further concern [place] of [place]. We are her closest hospital. MCG has been done. Departure - Departure Time of Disposition: 17:11 Disposition: Home, Self-Care 01 Condition: Serious Clinical Impression: DVT (deep venous thrombosis) Qualifiers: DVT location: lower extremity Affected thrombotic vein of extremity: femoral Chronicity: acute Laterality: left Qualified Code(s): I82.412 - Acute embolism and thrombosis of left femoral vein - Discharge Information Referrals: Yana May HAND PAINTER [Primary Care Provider] - Forms: ED Department Discharge ED Communication - Discussed Case With (1) Discussed Case With (1): Admitting Provider (Dr Logan, decision to admit at about 17:30) - My Orders Last 24 Hours: My Active Orders 05/19/17 15:18 Sodium Chloride 0.9% [Saline Flush] 10 ml FLUSH ASDIRECTED PRN 05/19/17 15:19 EKG 12 Lead [EKG Documentation Completion] [RC] STAT Peripheral IV Care [RC] . DIRECTED Peripheral IV Insertion Adult [OM.PC] Stat - Assessment/Plan Last 24 Hours: My Active Orders 05/19/17 15:18 Sodium Chloride 0.9% [Saline Flush] 10 ml FLUSH ASDIRECTED PRN 05/19/17 15:19 EKG 12 Lead [EKG Documentation Completion] [RC] STAT Peripheral IV Care [RC] . DIRECTED Peripheral IV Insertion Adult [OM.PC] Stat
[2017-05-19] MEDS ORDERED: Enoxaparin 80 MG/0.8 ML Syringe SUBCUT ONE (16:39)
--- NOTE | 2017-05-19 16:57 | US ---
Left lower extremity deep venous ultrasound: Duplex and color flow imaging was obtained of the left common femoral, greater saphenous, superficial femoral, popliteal, posterior tibial and peroneal veins. Right common femoral vein was also evaluated. Findings: Subcutaneous edema is identified within the lower extremity. Thrombus is identified within the left common femoral, superficial femoral, profunda femoris and popliteal veins. Incomplete clot is seen within the peroneal and posterior tibial veins. Greater saphenous vein is patent. Right common femoral vein is patent. Impression: 1. Fairly extensive deep venous thrombosis within the left lower extremity as described above. 2. Subcutaneous edema. Diagnostic code #5
[2017-05-19] MEDS ORDERED: HYDROmorphone 1 MG/ML Syringe IVPUSH PRN (17:57)
[2017-05-19] MEDS ORDERED: Ondansetron 4 MG/2 ML SDV IV PRN (17:57)
--- NOTE | 2017-05-19 17:57 | PCM.HP ---
H&P History of Present Illness - General Date of Service: 05/19/17 Admit Problem/Dx: DVT Source of Information: Patient, Provider, RN Notes Reviewed History Limitations: Reports: Physical Impairment - History of Present Illness Initial Comments - Free Text/Narative: This is a 76 year old elderly white female with past medical history of hypothyroidism, GERD, IBD, Sciatia, and ADHD who presents to the emergency department with complaints of left leg pain associated with edema. Her symptoms started about 4 days ago. Her initial discomfort started in the left groin and then progressively move down to the lower extremity. Her pain is aggravated by certain movements or manual pressure. She reports no shortness of breath, hemoptysis or pleuritic chest pain. Patient reports no previous history of it in the past. No family history of hypercoagulable state. No recent trauma or immobility. She is not obese. She denies any prolonged travel. Lastly, she denies being an active smoker. Her initial workup in the emergency department shows a fairly unremarkable CBC and chemistry. Her d-dimer is significantly elevated at 29.5. Her duplex ultrasound report reads fairly extensive deep venous thrombosis within the left lower extremity and subcutaneous edema. Patient is being admitted for medical management of left lower extremity DVT. She is full code. - Related Data Allergies/Adverse Reactions: Allergies Allergy/AdvReac Type Severity Reaction Status Date / Time No Known Allergies Allergy Verified 05/19/17 14:29 Home Medications: Home Meds Levothyroxine 112 mcg PO DAILY 08/24/14 [History] Past Medical History HEENT History: Reports: Other (See Below) Other HEENT History: dentures Cardiovascular History: Reports: Other (See Below) Other Cardiovascular History: lower extremity edema, palpitations Respiratory History: Reports: SOB Other Respiratory History: mild to moderate snoring Gastrointestinal History: Reports: GERD, Inflammatory Bowel Disease Genitourinary History: Reports: None Musculoskeletal History: Reports: Other (See Below) Other Musculoskeletal History: sciatica pain, swelling to left leg currently Neurological History: Reports: None Psychiatric History: Reports: ADHD Endocrine/Metabolic History: Reports: Hypothyroidism - Infectious Disease History Infectious Disease History: Reports: Measles - Past Surgical History Female Surgical History: Reports: Hysterectomy Musculoskeletal Surgical History: Reports: Knee Replacement, Shoulder Surgery Social & Family History - Family History Family Medical History: Noncontributory - Tobacco Use Smoking Status *Q: Former Smoker Years of Tobacco use: 10 Used Tobacco, but Quit: Yes Month Tobacco Last Used: 1989 Second Hand Smoke Exposure: No - Caffeine Use Caffeine Use: Reports: Coffee Other Caffeine Use: 1 cup of coffee/day and 1 diet coke/day - Alcohol Use Days Per Week of Alcohol Use: 1 Number of Drinks Per Day: 1 Total Drinks Per Week: 1 - Recreational Drug Use Recreational Drug Use: No H&P Review of Systems - Review of Systems: Review Of Systems: See Below General: Denies: Fever, Chills, Malaise, Weakness, Fatigue HEENT: Reports: No Symptoms Pulmonary: Denies: Shortness of Breath, Pleuritic Chest Pain, Hemoptysis Cardiovascular: Reports: Edema (left lower extremity). Denies: Chest Pain, Palpitations, Dyspnea on Exertion, Lightheadedness Gastrointestinal: Denies: Abdominal Pain, Nausea, Vomiting Genitourinary: Reports: No Symptoms Musculoskeletal: Reports: Leg Pain Skin: Reports: Rash (left leg), Erythema (left leg) Psychiatric: Denies: Depression, Anxiety, Agitation, Hallucinations Neurological: Reports: Difficulty Walking, Gait Disturbance. Denies: Confusion , Weakness Hematologic/Lymphatic: Reports: No Symptoms Immunologic: Reports: No Symptoms Exam - Exam Exam: See Below - Vital Signs Vital Signs: Last Vital Signs Temp 36.2 C 05/19/17 14:20 Pulse 77 05/19/17 14:20 Resp 12 05/19/17 14:20 BP 133/83 05/19/17 14:20 Pulse Ox 96 05/19/17 14:20 Weight: 70.874 kg - Exam General: Alert, Oriented, Cooperative, Mild Distress HEENT: Conjunctiva Clear, EACs Clear, EOMI, Hearing Intact, Mucosa Moist & [place] , Nares Patent, Posterior Pharynx Clear, Pupils Equal Neck: Supple, Trachea Midline, +2 Carotid Pulse wo Bruit, Full Range of Motion Lungs: Clear to Auscultation, Normal Respiratory Effort Cardiovascular: Regular Rate, Regular Rhythm GI/Abdominal Exam: Normal Bowel Sounds, Soft, Non-Tender, No Organomegaly, No Distention, No Abnormal Bruit (Female) Exam: Deferred Rectal (Female) Exam: Deferred Back Exam: Normal Inspection, Decreased Range of Motion Extremities: Normal Inspection, Normal Range of Motion, Non-Tender, No Pedal Edema, Normal Capillary Refill, Other (Left Lower Extremity: Diffuse edema, increased warmth, erythematous and tenderness with palpation. Peripheral pulses intact) Peripheral Pulses: 2+: Posterior Tibial (L), Dorsalis Pedis (L), 3+: Posterior Tibial (R), Dorsalis Pedis (R) Skin: Warm, Dry, Intact Neuro Extensive - Mental Status: Oriented x3, Normal Cognition, Memory Intact Neuro Extensive - Motor, Sensory, Reflexes: CN II-XII Intact (limited but grossly intact), Abnormal Gait Psychiatric: Alert, Normal Affect, Normal Mood - Patient Data Lab Results Last 24 hrs: Laboratory Results - last 24 hr 05/19/17 05/19/17 05/19/17 Range/Units 15:40 15:40 15:40 WBC 7.91 (3.98-10.04) K/mm3 RBC 4.23 (3.98-5.22) M/mm3 Hgb 13.6 (11.2-15.7) gm/L Hct 41.4 (34.1-44.9) % MCV 97.9 H (79.4-94.8) fl MCH 32.2 (25.6-32.2) pg MCHC 32.9 (32.2-35.5) g/dl RDW Std Deviation 47.9 H (36.4-46.3) fL Plt Count 207 (182-369) K/mm3 MPV 9.3 L (9.4-12.3) fl Neut % (Auto) 66.9 (34.0-71.1) % Lymph % (Auto) 15.9 L (19.3-51.7) % [place] % (Auto) 13.8 H (4.7-12.5) % Eos % (Auto) 2.7 (0.7-5.8) Baso % (Auto) 0.4 (0.1-1.2) % Neut # (Auto) 5.30 (1.56-6.13) K/mm3 Lymph # (Auto) 1.26 (1.18-3.74) K/mm3 [place] # (Auto) 1.09 H (0.24-0.36) K/mm3 Eos # (Auto) 0.21 (0.04-0.36) K/mm3 Baso # (Auto) 0.03 (0.01-0.08) K/mm3 D-Dimer, Quantitative 29.55 H (0.19-0.59) mg/L Sodium 140 (136-145) mEq/L Potassium 3.8 (3.5-5.1) mEq/L Chloride 101 (98-107) mEq/L Carbon Dioxide 30 (21-32) mEq/L Anion Gap 12.8 (5-15) BUN 17 (7-18) mg/dL Creatinine 1.0 (0.55-1.02) mg/dL Est Cr Clr Drug Dosing 43.07 mL/min Estimated GFR (MDRD) 54 (>60) mL/min BUN/Creatinine Ratio 17.0 (14-18) Glucose 94 (83-115) mg/dL Calcium 10.0 (8.5-10.1) mg/dL Total Bilirubin 0.8 (0.2-1.0) mg/dL AST 18 (15-37) U/L ALT 18 (14-59) U/L Alkaline Phosphatase 86 (46-116) U/L Total Protein 7.1 (6.4-8.2) g/dl Albumin 3.4 (3.4-5.0) g/dl Globulin 3.7 gm/dL Albumin/Globulin Ratio 0.9 L (1-2) Result Diagrams: 05/19/17 15:40 05/19/17 15:40 *Q Meaningful Use (ADM) - VTE *Q VTE Criteria *Q: - Stroke *Q Stroke Criteria *Q: - AMI *Q AMI Criteria *Q: Problem List Initiated/Reviewed/Updated: Yes Orders Last 24hrs: Active Orders 24 hr Category Date Time Status EKG 12 Lead [EKG Documentation Completion] [] STAT Care 05/19/17 15:19 Active Peripheral IV Care [RC] . DIRECTED Care 05/19/17 15:19 Active Sodium Chloride 0.9% [Saline Flush] Med 05/19/17 15:18 Active 10 ml FLUSH ASDIRECTED PRN Peripheral IV Insertion Adult [OM.PC] Stat Oth 05/19/17 15:19 Ordered Medication Orders Sodium Chloride (Saline Flush) 10 ml FLUSH ASDIRECTED PRN PRN Reason: Keep Vein Open Last Admin: 05/19/17 15:41 Dose: 10 ml Assessment/Plan Comment:: Assessment/Plan: Acute: Left Lower Extremity DVT -Duplex U/S: Fairly extensive DVT within the left lower extremity and subcutaneous edema -Suspect Unprovoked in etiology -No family hx/o hypercoagulable Disorders -No recent surgery, immobility and prolonged travel -She is not an active smoker -Offered DOACs; she okayed Xarelto for anticoagulation -Recommend hypercoagulabe work up after completion of treatment Left Lower Extremity Pain -2/2 Extensive DVT -PRN/Scheduled Pain Medications Chronic: Hypothyroidism GERD IBS Sciatia ADHD Plan: Admit to the floor Routine AM Labs Resume Home Meds if there are any PT/OT consult CM for d/c planning Code Status:1
[2017-05-19] MEDS ORDERED: Promethazine 12.5 MG in Sodium Chloride 0.9% 50 ML IV PRN (17:59)
[2017-05-19] MEDS ORDERED: Docusate Sodium 100 MG Cap PO PRN (17:59)
[2017-05-19] MEDS ORDERED: Albuterol/Ipratropium 3.0-0.5 MG/3 ML Neb Soln NEB PRN (17:59)
[2017-05-19] MEDS ORDERED: Bisacodyl 5 MG Tab PO PRN (17:59)
[2017-05-19] MEDS ORDERED: Polyethylene Glycol 3350 Powder 17 GM Packet PO PRN (17:59)
[2017-05-19] MEDS ORDERED: Temazepam 15 MG Cap PO PRN (17:59)
[2017-05-19] MEDS ORDERED: oxyCODONE 5 MG Tab PO SCH (21:00)
[2017-05-19] MEDS: Rivaroxaban 10 MG Tab PO SCH (21:01)
[2017-05-19] MEDS: Acetaminophen 325 MG Tab PO PRN (21:02)
[2017-05-19] MEDS: Temazepam 7.5 MG Cap PO PRN (21:04)
[2017-05-19] MEDS: LORazepam 2 MG/ML MDV IV PRN (21:06)
[2017-05-20] MEDS: Acetaminophen 325 MG Tab PO PRN ×2 (05:34→10:10)
[2017-05-20] MEDS ORDERED: HYDROmorphone 0.5 MG/0.5 ML Syringe IVPUSH PRN (08:07)
[2017-05-20] MEDS: Rivaroxaban 10 MG Tab PO SCH ×2 (09:37→21:13)
--- NOTE | 2017-05-20 10:28 | PCM.DCSUM1 ---
Discharge Summary - Hospital Course Brief History: This is a 76 year old elderly white female with past medical history of hypothyroidism, GERD, IBS, Sciatia, and ADHD who presented to the emergency department with complaints of left leg pain associated with edema and was found to have a fairly extensive DVT. - Discharge Data Discharge Date: 05/21/17 Discharge Disposition: Home, Self-Care 01 Condition: Good - Discharge Diagnosis/Problem(s) (1) DVT (deep venous thrombosis) SNOMED Code(s): 883639344 ICD Code: I82.409 - ACUTE EMBOLISM AND THOMBOS UNSP DEEP VN UNSP LOWER EXTREMITY Status: Acute Qualifiers: DVT location: lower extremity Affected thrombotic vein of extremity: femoral Chronicity: acute Laterality: left Qualified Code(s): I82.412 - Acute embolism and thrombosis of left femoral vein - Patient Summary/Data Operative Procedure(s) Performed: None Complications: None Consults: None Labs Pending at D/C: None Recommended Follow-up Testing/Procedures: None Planned Operative Procedure(s) after DC: None Hospital Course: Patient was primarily admitted for leg pain with edema and was found to have DVT on duplex U/S. She carried no past medical hx/o it. She also had no obvious risk factors that predisposed her to developing blood clot. Hence, we believed her blood clot was unprovoked in nature. Patient was admitted overnight for observation. She was provided supportive care and was placed on xarelto for treatment. Her hospital course was uncomplicated. The rest of her chronic medical illness remained stable during this admission. Patient was stable upon discharge. She was discharged with Xarelto 15 mg by mouth twice a day with food for 21 days and then 20 mg one tab by mouth daily for 6 months treatment. She was advised to resume routine home activities without any restriction. She was further advised to defer planned orthopedic surgery until her treatment is done. The patient expressed understanding and in agreement with the plans as discussed above. All questions were answered. Her PCP was called and updated regarding discharge care plan. - Patient Instructions Diet: Usual Diet as Tolerated Activity: As Tolerated Driving: Do Not Drive Showering/Bathing: May Shower Notify Provider of: Fever, Increased Pain, Swelling and Redness, Nausea and/or Vomiting Other/Special Instructions: - Please take new medication as directed. - Resume all home medications. - Continue routine home activities w/o any restrictions. - If patient desires, recommend hypercoagulable work up after treatment. - Follow up with your doctor in 1 week. - Call or follow up with your doctor for any questions or concerns after discharge - Discharge Plan Prescriptions/Med Rec: Rivaroxaban [Xarelto] 15 mg PO BID #40 tablet tiZANidine [Zanaflex] 2 mg PO Q6H PRN #30 tab PRN Reason: Muscle Spasm Home Medications: Home Meds Levothyroxine 112 mcg PO DAILY 08/24/14 [History] Rivaroxaban [Xarelto] 15 mg PO BID #40 tablet 05/20/17 [Rx] tiZANidine [Zanaflex] 2 mg PO Q6H PRN #30 tab 05/21/17 [Rx] Patient Handouts: Deep Vein Thrombosis Referrals: [facility] [Primary Care Provider] - - Discharge Summary/Plan Comment DC Time >30 min.: Yes (45 mins) Discharge Summary/Plan Comment: Discharge to Home - General Info Date of Service: 05/21/17 Admission Dx/Problem (Free Text: DVT Subjective Update: Follow Up Functional Status: Reports: Pain Controlled, Tolerating Diet - Review of Systems General: Denies: Fever, Weakness, Fatigue, Malaise, Chills HEENT: Reports: No Symptoms Pulmonary: Denies: Shortness of Breath, Pleuritic Chest Pain, Cough, Hemoptysis Cardiovascular: Reports: Edema (left leg). Denies: Chest Pain, Palpitations, Dyspnea on Exertion Gastrointestinal: Denies: Abdominal Pain, Nausea, Vomiting Genitourinary: Reports: No Symptoms Musculoskeletal: Denies: Leg Pain Skin: Denies: Cyanosis, Mottled, Pallor, Diaphoresis, Rash Neurological: Denies: Confusion, Difficulty Walking, Weakness, Gait Disturbance Psychiatric: Denies: Depression, Anxiety, Agitation, Hallucinations Systems Review Comment: No overnight or acute issues. She slept well last night and feels pretty good. She ambulates down the [place] w/o any difficulties. She experiences no pain with ambulation. She reports no new complaints. - Patient Data Vitals - Most Recent: Last Vital Signs Temp 36.6 C 05/20/17 02:32 Pulse 81 05/20/17 02:32 Resp 16 05/20/17 02:32 BP 105/63 05/20/17 02:32 Pulse Ox 96 01/14/18 02:32 Weight - Most Recent: 70.987 kg I&O - Last 24 hours: Intake & Output 05/19/17 05/20/17 05/20/17 22:59 06:59 14:59 Intake Total 250 Output Total 400 Balance -150 Lab Results - Last 24 hrs: Laboratory Results - last 24 hr 05/20/17 05/20/17 Range/Units 06:41 06:41 WBC 6.72 (3.98-10.04) K/mm3 RBC 3.99 (3.98-5.22) M/mm3 Hgb 12.7 (11.2-15.7) gm/L Hct 39.1 (34.1-44.9) % MCV 98.0 H (79.4-94.8) fl MCH 31.8 (25.6-32.2) pg MCHC 32.5 (32.2-35.5) g/dl RDW Std Deviation 47.3 H (36.4-46.3) fL Plt Count 210 (182-369) K/mm3 MPV 9.6 (9.4-12.3) fl Neut % (Auto) 67.3 (34.0-71.1) % Lymph % (Auto) 13.7 L (19.3-51.7) % [place] % (Auto) 14.0 H (4.7-12.5) % Eos % (Auto) 3.9 (0.7-5.8) Baso % (Auto) 0.7 (0.1-1.2) % Neut # (Auto) 4.52 (1.56-6.13) K/mm3 Lymph # (Auto) 0.92 L (1.18-3.74) K/mm3 [place] # (Auto) 0.94 H (0.24-0.36) K/mm3 Eos # (Auto) 0.26 (0.04-0.36) K/mm3 Baso # (Auto) 0.05 (0.01-0.08) K/mm3 Sodium 140 (136-145) mEq/L Potassium 3.3 L (3.5-5.1) mEq/L Chloride 103 (98-107) mEq/L Carbon Dioxide 26 (21-32) mEq/L Anion Gap 14.3 (5-15) BUN 18 (7-18) mg/dL Creatinine 1.0 (0.55-1.02) mg/dL Est Cr Clr Drug Dosing 43.07 mL/min Estimated GFR (MDRD) 54 (>60) mL/min BUN/Creatinine Ratio 18.0 (14-18) Glucose 124 H (83-115) mg/dL Calcium 9.5 (8.5-10.1) mg/dL Magnesium 1.9 (1.8-2.4) mg/dl Med Orders - Current: Current Medications Acetaminophen (Tylenol) 650 mg PO Q4H PRN PRN Reason: Pain (Mild 1-3)/fever Last Admin: 05/20/17 10:10 Dose: 650 mg Albuterol/Ipratropium (Duoneb 3.0-0.5 Mg/3 Ml) 3 ml NEB Q4H PRN PRN Reason: Shortness Of Breath/wheezing Bisacodyl (Dulcolax) 5 mg PO DAILY PRN PRN Reason: Constipation Docusate Sodium (Colace) 100 mg PO BID PRN PRN Reason: Constipation Hydromorphone HCl (Dilaudid) 0.25 mg IVPUSH Q4H PRN PRN Reason: Pain (severe 7-10) Promethazine HCl 12.5 mg/ (Sodium Chloride) 50.5 mls @ 100 mls/hr IV Q6H PRN PRN Reason: Nausea/Vomiting Lorazepam (Ativan) 1 mg IV Q6H PRN PRN Reason: Anxiety Last Admin: 05/19/17 21:06 Dose: 1 mg Ondansetron HCl (Zofran) 4 mg IV Q6H PRN PRN Reason: Nausea/Vomiting Oxycodone HCl (Oxycodone) 5 mg PO Q4H PRN PRN Reason: Pain (moderate 4-6) Polyethylene Glycol (Miralax) 17 gm PO DAILY PRN PRN Reason: Constipation Rivaroxaban (Xarelto) 15 mg PO BID JENNY Last Admin: 05/20/17 09:37 Dose: 15 mg Senna/Docusate Sodium (Senna Plus) 1 tab PO BID PRN PRN Reason: Constipation Sodium Chloride (Saline Flush) 10 ml FLUSH ASDIRECTED PRN PRN Reason: Keep Vein Open Temazepam (Restoril) 7.5 mg PO BEDTIME PRN PRN Reason: Sleep Last Admin: 05/19/17 21:04 Dose: 7.5 mg Discontinued Medications Enoxaparin Sodium (Lovenox) 70 mg SUBCUT ONETIME ONE Stop: 05/19/17 16:40 Last Admin: 05/19/17 16:56 Dose: 70 mg Hydromorphone HCl (Dilaudid) 0.25 mg IVPUSH Q4H PRN PRN Reason: Pain (severe 7-10) Oxycodone HCl (Oxycodone) 10 mg PO BID JENNY Sodium Chloride (Saline Flush) 10 ml FLUSH ASDIRECTED PRN PRN Reason: Keep Vein Open Last Admin: 05/19/17 15:41 Dose: 10 ml Temazepam (Restoril) 15 mg PO BEDTIME PRN PRN Reason: Sleep - Exam General: Reports: Alert, Oriented, Cooperative, No Acute Distress HEENT: Reports: Pupils Equal, Pupils Reactive, EOMI, Mucous Membr. Moist/[place] Neck: Reports: Supple, Trachea Midline, No JVD Lungs: Reports: Clear to Auscultation, Normal Respiratory Effort Cardiovascular: Reports: Regular Rate, Regular Rhythm GI/Abdominal Exam: Normal Bowel Sounds, Soft, Non-Tender, No Organomegaly, No Distention, No Abnormal Bruit, No Mass (Female) Exam: Deferred Rectal (Female) Exam: Deferred Back Exam: Reports: Normal Inspection, Decreased Range of Motion Extremities: Normal Inspection, Normal Range of Motion, Non-Tender, No Pedal Edema, Normal Capillary Refill, Other (Left Leg: Edema. No redness or tenderness on palpation). No: Oscar's Sign Skin: Reports: Warm, Dry, Intact Neurological: Reports: No New Focal Deficit Psy/Mental Status: Reports: Alert, Normal Affect, Normal Mood *Q Meaningful Use (DIS) - VTE *Q VTE Criteria *Q: - Stroke *Q Stroke Criteria *Q: - AMI *Q AMI Criteria *Q:
--- NOTE | 2017-05-20 11:04 | PCM.PN ---
- General Info Date of Service: 05/20/17 Admission Dx/Problem (Free Text): DVT Subjective Update: Follow Up Functional Status: Reports: Pain Controlled, Tolerating Diet, Ambulating, Urinating. Denies: New Symptoms - Review of Systems General: Denies: Fever, Weakness, Fatigue, Malaise, Chills HEENT: Reports: No Symptoms Pulmonary: Denies: Shortness of Breath, Pleuritic Chest Pain, Cough, Hemoptysis Cardiovascular: Reports: Edema. Denies: Chest Pain, Palpitations, Dyspnea on Exertion, Lightheadedness Gastrointestinal: Denies: Abdominal Pain, Nausea, Vomiting Genitourinary: Reports: No Symptoms Musculoskeletal: Reports: Back Pain. Denies: Leg Pain Skin: Denies: Cyanosis, Jaundice, Mottled, Pallor, Diaphoresis, Bruising, Rash Neurological: Reports: Difficulty Walking. Denies: Confusion, Weakness, Gait Disturbance Psychiatric: Denies: Depression, Anxiety, Agitation, Hallucinations Systems Review Comment:: No overnight or acute issues. She slept well last night. She did not do well with ambulation this morning. Her labs and vitals are fairly stable. - Patient Data Vitals - Most Recent: Last Vital Signs Temp 36.6 C 05/20/17 02:32 Pulse 81 05/20/17 02:32 Resp 16 05/20/17 02:32 BP 105/63 05/20/17 02:32 Pulse Ox 96 05/20/17 02:32 Weight - Most Recent: 70.987 kg I&O - Last 24 Hours: Intake & Output 05/19/17 05/20/17 05/20/17 22:59 06:59 14:59 Intake Total 250 90 Output Total 400 Balance -150 90 Lab Results Last 24 Hours: Laboratory Results - last 24 hr 05/20/17 05/20/17 Range/Units 06:41 06:41 WBC 6.72 (3.98-10.04) K/mm3 RBC 3.99 (3.98-5.22) M/mm3 Hgb 12.7 (11.2-15.7) gm/L Hct 39.1 (34.1-44.9) % MCV 98.0 H (79.4-94.8) fl MCH 31.8 (25.6-32.2) pg MCHC 32.5 (32.2-35.5) g/dl RDW Std Deviation 47.3 H (36.4-46.3) fL Plt Count 210 (182-369) K/mm3 MPV 9.6 (9.4-12.3) fl Neut % (Auto) 67.3 (34.0-71.1) % Lymph % (Auto) 13.7 L (19.3-51.7) % [place] % (Auto) 14.0 H (4.7-12.5) % Eos % (Auto) 3.9 (0.7-5.8) Baso % (Auto) 0.7 (0.1-1.2) % Neut # (Auto) 4.52 (1.56-6.13) K/mm3 Lymph # (Auto) 0.92 L (1.18-3.74) K/mm3 [place] # (Auto) 0.94 H (0.24-0.36) K/mm3 Eos # (Auto) 0.26 (0.04-0.36) K/mm3 Baso # (Auto) 0.05 (0.01-0.08) K/mm3 Sodium 140 (136-145) mEq/L Potassium 3.3 L (3.5-5.1) mEq/L Chloride 103 (98-107) mEq/L Carbon Dioxide 26 (21-32) mEq/L Anion Gap 14.3 (5-15) BUN 18 (7-18) mg/dL Creatinine 1.0 (0.55-1.02) mg/dL Est Cr Clr Drug Dosing 43.07 mL/min Estimated GFR (MDRD) 54 (>60) mL/min BUN/Creatinine Ratio 18.0 (14-18) Glucose 124 H (83-115) mg/dL Calcium 9.5 (8.5-10.1) mg/dL Magnesium 1.9 (1.8-2.4) mg/dl Med Orders - Current: Current Medications Acetaminophen (Tylenol) 650 mg PO Q4H PRN PRN Reason: Pain (Mild 1-3)/fever Last Admin: 05/20/17 10:10 Dose: 650 mg Albuterol/Ipratropium (Duoneb 3.0-0.5 Mg/3 Ml) 3 ml NEB Q4H PRN PRN Reason: Shortness Of Breath/wheezing Bisacodyl (Dulcolax) 5 mg PO DAILY PRN PRN Reason: Constipation Docusate Sodium (Colace) 100 mg PO BID PRN PRN Reason: Constipation Hydromorphone HCl (Dilaudid) 0.25 mg IVPUSH Q4H PRN PRN Reason: Pain (severe 7-10) Promethazine HCl 12.5 mg/ (Sodium Chloride) 50.5 mls @ 100 mls/hr IV Q6H PRN PRN Reason: Nausea/Vomiting Lorazepam (Ativan) 1 mg IV Q6H PRN PRN Reason: Anxiety Last Admin: 05/19/17 21:06 Dose: 1 mg Ondansetron HCl (Zofran) 4 mg IV Q6H PRN PRN Reason: Nausea/Vomiting Oxycodone HCl (Oxycodone) 5 mg PO Q4H PRN PRN Reason: Pain (moderate 4-6) Polyethylene Glycol (Miralax) 17 gm PO DAILY PRN PRN Reason: Constipation Rivaroxaban (Xarelto) 15 mg PO BID [facility] Last Admin: 05/20/17 09:37 Dose: 15 mg Senna/Docusate Sodium (Senna Plus) 1 tab PO BID PRN PRN Reason: Constipation Sodium Chloride (Saline Flush) 10 ml FLUSH ASDIRECTED PRN PRN Reason: Keep Vein Open Temazepam (Restoril) 7.5 mg PO BEDTIME PRN PRN Reason: Sleep Last Admin: 05/19/17 21:04 Dose: 7.5 mg Discontinued Medications Enoxaparin Sodium (Lovenox) 70 mg SUBCUT ONETIME ONE Stop: 05/19/17 16:40 Last Admin: 05/19/17 16:56 Dose: 70 mg Hydromorphone HCl (Dilaudid) 0.25 mg IVPUSH Q4H PRN PRN Reason: Pain (severe 7-10) Oxycodone HCl (Oxycodone) 10 mg PO BID [facility] Sodium Chloride (Saline Flush) 10 ml FLUSH ASDIRECTED PRN PRN Reason: Keep Vein Open Last Admin: 05/19/17 15:41 Dose: 10 ml Temazepam (Restoril) 15 mg PO BEDTIME PRN PRN Reason: Sleep - Exam General: Alert, Oriented, Cooperative, No Acute Distress HEENT: Pupils Equal, Pupils Reactive, EOMI, Mucous Membr. Moist/[place] Neck: Supple, Trachea Midline, No JVD, No Thyromegaly Lungs: Clear to Auscultation, Normal Respiratory Effort Cardiovascular: Regular Rate, Regular Rhythm GI/Abdominal Exam: Normal Bowel Sounds, Soft, Non-Tender, No Organomegaly, No Distention, No Abnormal Bruit, No Mass (Female) Exam: Deferred Back Exam: Normal Inspection, Decreased Range of Motion Extremities: Normal Inspection (right leg), Normal Range of Motion (right leg), Limited Range of Motion (left leg), Increased Warmth (left leg), Other (left lower extremity non-pitting edema). No: Oscar's Sign, Leg Pain, Redness Peripheral Pulses: 2+: Dorsalis Pedis (L), Dorsalis Pedis (R) Skin: Warm, Intact Wound/Incisions: Healing Well Neurological: No New Focal Deficit. No: Normal Gait Psy/Mental Status: Alert, Normal Affect, Normal Mood - Problem List & Annotations (1) DVT (deep venous thrombosis) SNOMED Code(s): 104344436 Code(s): I82.409 - ACUTE EMBOLISM AND THOMBOS UNSP DEEP VN UNSP LOWER EXTREMITY Status: Acute Current Visit: Yes Qualifiers: DVT location: lower extremity Affected thrombotic vein of extremity: femoral Chronicity: acute Laterality: left Qualified Code(s): I82.412 - Acute embolism and thrombosis of left femoral vein - Problem List Review Problem List Initiated/Reviewed/Updated: Yes - My Orders Last 24 Hours: My Active Orders 05/19/17 19:28 Temazepam [Restoril] 7.5 mg PO BEDTIME PRN 05/20/17 08:07 HYDROmorphone [Dilaudid] 0.25 mg IVPUSH Q4H PRN 05/20/17 10:27 Ready for Discharge [RC] PER UNIT ROUTINE - Plan Plan:: Assessment/Plan: Acute: Left Lower Extremity DVT -Duplex U/S: Fairly extensive DVT within the left lower extremity and subcutaneous edema -Suspect Unprovoked in etiology -No family hx/o hypercoagulable Disorders -No recent surgery, immobility and prolonged travel -She is not an active smoker -Offered DOACs; she okayed Xarelto for anticoagulation -Recommend hypercoagulabe work up after completion of treatment Left Lower Extremity Pain -2/2 Extensive DVT -PRN/Scheduled Pain Medications -Has some difficulty with ambulation this am -Reports leg cramps and back pain Hypokalemia -K 3.3 -2/2 Inadequate -Pharmacy to replete and monitor Chronic: Hypothyroidism GERD IBS Sciatia ADHD Plan: She is clinically stable but not ready to go Continue current treatment Routine AM Labs Continue PT/OT if services available CM for d/c planning Encourage to ambulate as tolerated Code Status:1
[2017-05-20] MEDS ORDERED: Potassium Chloride 20 MEQ Tab.ER PO ONE (12:47)
[2017-05-20] MEDS ORDERED: Magnesium Sulfate/Water 2 GM in Premix Bag 1 BAG IV ONE (13:00)
[2017-05-20] MEDS: oxyCODONE 5 MG Tab PO PRN ×2 (15:58→20:16)
[2017-05-20] MEDS: LORazepam 2 MG/ML MDV IV PRN (21:13)
[2017-05-21] MEDS: oxyCODONE 5 MG Tab PO PRN ×2 (00:31→05:47)
[2017-05-21] MEDS: Acetaminophen 325 MG Tab PO PRN ×2 (00:35→05:46)
[2017-05-21] MEDS: Temazepam 7.5 MG Cap PO PRN (00:35)
[2017-05-21] MEDS: Rivaroxaban 10 MG Tab PO SCH (08:35)
[2017-05-21 10:04] VITALS: BP 136/72
== END 2017-05-21 10:15 | disposition home or self-care (01) ==
LOC: JD.ED 14:09 → JD.MS 18:27 → UNDOADMOB 18:27 → JD.MS 18:32
PROVIDERS: ADMIT Internal Medicine; ATTEND Internal Medicine
DX: I82.412 Acute embolism and thrombosis of left femoral vein (principal); E03.9 Hypothyroidism, unspecified; K21.9 Gastro-esophageal reflux disease without esophagitis; K58.9 Irritable bowel syndrome, unspecified; F90.9 Attention-deficit hyperactivity disorder, unspecified type; M54.32 Sciatica, left side; R60.0 Localized edema; Z87.891 Personal history of nicotine dependence; Z79.899 Other long term (current) drug therapy; Z96.659 Presence of unspecified artificial knee joint; Z90.710 Acquired absence of both cervix and uterus; Z98.890 Other specified postprocedural states
CPT/HCPCS: 36415; 80048; 80053; 83735; 85025; 85379; 93005; 93971; 96372; 97161; 97166; 97530; 99285; A9270; J1650; J2060; J7050; 96375; 96376; 99284-25; G0378; J3475

== ENCOUNTER 2017-11-20 07:19 | Day surgery (SDC) | payer MEDICARE, BC ==
[~2017-11-20 07:19] MED LIST: Cefuroxime 10 MG/ML SYRINGE EYELF SCH; Lidocaine 1% PF 2 ML SDV INJECT SCH; Pilocarpine 4% Ophth Soln 15 ML Bot EYELF SCH
[2017-11-20] MEDS: Polymyxin B/Trimethoprim 10 ML Bottle EYELF SCH ×3 (07:36→09:17)
[2017-11-20] MEDS: Brimonidine 0.2% Ophth Soln 5 ML Bottle EYELF SCH ×3 (07:40→09:17)
--- NOTE | 2017-11-20 07:45 | PCM.PREANE ---
Preanesthetic Assessment - Anesthesia/Transfusion/Family Hx Anesthesia History: Prior Anesthesia Without Reaction Family History of Anesthesia Reaction: No Transfusion History: No Prior Transfusion(s) Intubation History: Unknown - Review of Systems General: No Symptoms Pulmonary: No Symptoms Cardiovascular: No Symptoms Gastrointestinal: No Symptoms Neurological: No Symptoms Other: Reports: None - Physical Assessment NPO Status Date: 11/20/17 NPO Status Time: 18:00 Pulse: 67 O2 Sat by Pulse Oximetry: 97 Respiratory Rate: 16 Blood Pressure: 163/73 Temperature: 97.5 C ASA Class: 2 Mental Status: Alert & Oriented x3 Airway Class: Mallampati = 1 Dentition: Reports: Normal Dentition, Dentures Thyro-Mental Finger Breadths: 3 Mouth Opening Finger Breadths: 3 ROM/Head Extension: Full Lungs: Clear to Auscultation, Normal Respiratory Effort Cardiovascular: Regular Rate, Regular Rhythm - Allergies Allergies/Adverse Reactions: Allergies Allergy/AdvReac Type Severity Reaction Status Date / Time No Known Allergies Allergy Verified 11/19/17 13:52 - Acknowledgements Anesthesia Type Planned: MAC Pt an Appropriate Candidate for the Planned Anesthesia: Yes Alternatives and Risks of Anesthesia Discussed w Pt/Guardian: Yes Pt/Guardian Understands and Agrees with Anesthesia Plan: Yes PreAnesthesia Questionnaire HEENT History: Reports: Cataract, Other (See Below) Other HEENT History: dentures Cardiovascular History: Reports: Other (See Below) Other Cardiovascular History: lower extremity edema, palpitations Respiratory History: Reports: SOB (SOB with exertion) Other Respiratory History: mild to moderate snoring Gastrointestinal History: Reports: GERD, Inflammatory Bowel Disease Genitourinary History: Reports: None Musculoskeletal History: Reports: Other (See Below) Other Musculoskeletal History: sciatica pain, swelling to left leg currently Neurological History: Reports: None Psychiatric History: Reports: ADHD Endocrine/Metabolic History: Reports: Hypothyroidism Hematologic History: Reports: None - Infectious Disease History Infectious Disease History: Reports: Measles - Past Surgical History Head Surgeries/Procedures: Reports: None HEENT Surgical History: Reports: Tonsillectomy Cardiovascular Surgical History: Reports: None Respiratory Surgical History: Reports: None GI Surgical History: Reports: Cholecystectomy Female Surgical History: Reports: Hysterectomy Male Surgical History: Reports: None Endocrine Surgical History: Reports: None Neurological Surgical History: Reports: None Musculoskeletal Surgical History: Reports: Knee Replacement ((L) knee), Shoulder Surgery Oncologic Surgical History: Reports: None Dermatological Surgical History: Reports: None - SUBSTANCE USE Smoking Status *Q: Never Smoker - HOME MEDS Home Medications: Home Meds Levothyroxine 112 mcg PO DAILY 08/24/14 [History] Rivaroxaban [Xarelto] 15 mg PO BID #40 tablet 05/20/17 [Rx] - CURRENT (IN HOUSE) MEDS Current Meds: Current Medications Brimonidine Tartrate (Alphagan 0.2% Ophth Soln) 0 ml EYELF ASDIRECTED JENNY Stop: 11/20/17 18:00 Cefuroxime Sodium (Zinacef) 0 mg EYELF ASDIRECTED JENNY Stop: 11/20/17 18:00 Lidocaine HCl (Xylocaine-Mpf 1%) 0 ml INJECT ASDIRECTED JENNY Stop: 11/20/17 18:00 Phenylephrine HCl (Karlo-Synephrine 2.5% Ophth Soln) 0 ml EYELF ASDIRECTED JENNY Stop: 11/20/17 18:00 Pilocarpine HCl (Pilocar 4% Ophth Soln) 0 ml EYELF ASDIRECTED JENNY Stop: 11/20/17 18:00 Polymyxin/Trimethoprim Sulfate (Polytrim Ophth Soln) 0 ml EYELF ASDIRECTED JENNY Stop: 11/20/17 18:00 Last Admin: 11/20/17 07:36 Dose: 1 drop Tetracaine HCl (Tetracaine 0.5% Steri-Unit Sandrine) 0 ml EYELF ASDIRECTED JENNY Stop: 11/20/17 18:00 Tropicamide (Mydriacyl 1% Ophth Soln) 0 ml EYELF ASDIRECTED JENNY Stop: 11/20/17 18:00
[2017-11-20] MEDS: Phenylephrine 2.5% Ophth Soln 2 ML Bot EYELF SCH ×5 (07:46→08:59)
[2017-11-20] MEDS: Tropicamide 1% Ophth Soln 3 ML Bottle EYELF SCH ×4 (07:51→08:39)
[2017-11-20] MEDS: Tetracaine HCl/PF 0.5% 4 ML Bottle EYELF SCH ×2 (08:48→09:08)
--- NOTE | 2017-11-20 09:19 | PCM48HPAN ---
Post Anesthesia Note - EVALUATION WITHIN 48HRS OF ANESTHETIC Vital Signs in Normal Range: Yes Patient Participated in Evaluation: Yes Respiratory Function Stable: Yes Airway Patent: Yes Cardiovascular Function Stable: Yes Hydration Status Stable: Yes Pain Control Satisfactory: Yes Nausea and Vomiting Control Satisfactory: Yes Mental Status Recovered: Yes Pulse Rate: 69 SaO2: 97 Resp Rate: 17 Temperature: 97.5 C Blood Pressure: 142/72
[2017-11-20 10:02] VITALS: BP 153/78
== END 2017-11-20 09:29 | disposition home or self-care (01) ==
LOC: JD.SDS 07:19
PROVIDERS: ATTEND Ophthalmology
DX: H25.813 Combined forms of age-related cataract, bilateral (principal); H35.3131 Nonexudative age-related macular degeneration, bilateral, early dry stage; H35.363 Drusen (degenerative) of macula, bilateral; H40.003 Preglaucoma, unspecified, bilateral; H02.831 Dermatochalasis of right upper eyelid; H02.834 Dermatochalasis of left upper eyelid; H16.103 Unspecified superficial keratitis, bilateral; H16.223 Keratoconjunctivitis sicca, not specified as Sjogren's, bilateral; E05.90 Thyrotoxicosis, unspecified without thyrotoxic crisis or storm; Z79.899 Other long term (current) drug therapy
CPT/HCPCS: 66984; C1780; J0697; A9270-GY; J2001

== ENCOUNTER 2018-01-22 07:19 | Day surgery (SDC) | payer MEDICARE, BC ==
[~2018-01-22 07:19] MED LIST changes: +Brimonidine 0.2% Ophth Soln 5 ML Bottle EYERT SCH; -Cefuroxime 10 MG/ML SYRINGE EYELF SCH; +Cefuroxime 10 MG/ML SYRINGE EYERT SCH; +Phenylephrine 2.5% Ophth Soln 2 ML Bot EYERT SCH; -Pilocarpine 4% Ophth Soln 15 ML Bot EYELF SCH; +Pilocarpine 4% Ophth Soln 15 ML Bot EYERT SCH; +Polymyxin B/Trimethoprim 10 ML Bottle EYERT SCH; +Tetracaine HCl/PF 0.5% 4 ML Bottle EYERT SCH; +Tropicamide 1% Ophth Soln 15 ML Bottle EYERT SCH
[2018-01-22] MEDS: Polymyxin B/Trimethoprim 10 ML Bottle EYERT SCH ×4 (07:26→09:07)
[2018-01-22] MEDS: Brimonidine 0.2% Ophth Soln 5 ML Bottle EYERT SCH ×4 (07:31→09:07)
[2018-01-22] MEDS: Phenylephrine 2.5% Ophth Soln 2 ML Bot EYERT SCH ×6 (07:36→08:44)
[2018-01-22] MEDS: Tropicamide 1% Ophth Soln 15 ML Bottle EYERT SCH ×4 (07:41→08:21)
--- NOTE | 2018-01-22 07:44 | PCM.PREANE ---
Preanesthetic Assessment - Anesthesia/Transfusion/Family Hx Anesthesia History: Prior Anesthesia Without Reaction Transfusion History: No Prior Transfusion(s) Intubation History: Unknown - Review of Systems General: No Symptoms Pulmonary: No Symptoms Cardiovascular: No Symptoms (Very active at home. ) Gastrointestinal: No Symptoms Neurological: No Symptoms Other: Reports: None (Several blood clots in her left leg last May. On xarelto for 6 months. Last dose in November. No problems since that time. ) - Physical Assessment NPO Status Date: 01/21/18 NPO Status Time: 18:00 O2 Sat by Pulse Oximetry: 97 Respiratory Rate: 16 Vital Signs: Last Vital Signs Temp 36.4 C 01/22/18 07:25 Pulse 75 01/22/18 07:25 Resp 16 01/22/18 07:25 BP 150/78 H 01/22/18 07:25 Pulse Ox 97 01/22/18 07:25 Height: 1.65 m Weight: 73.482 kg ASA Class: 2 Mental Status: Alert & Oriented x3 Airway Class: Mallampati = 1 Dentition: Reports: Dentures Thyro-Mental Finger Breadths: 2 Mouth Opening Finger Breadths: 3 ROM/Head Extension: Full Lungs: Clear to Auscultation, Normal Respiratory Effort Cardiovascular: Regular Rate, Regular Rhythm - Allergies Allergies/Adverse Reactions: Allergies Allergy/AdvReac Type Severity Reaction Status Date / Time No Known Allergies Allergy Verified 01/21/18 13:48 - Acknowledgements Anesthesia Type Planned: MAC Pt an Appropriate Candidate for the Planned Anesthesia: Yes Alternatives and Risks of Anesthesia Discussed w Pt/Guardian: Yes Pt/Guardian Understands and Agrees with Anesthesia Plan: Yes PreAnesthesia Questionnaire HEENT History: Reports: Cataract, Other (See Below) Other HEENT History: dentures Cardiovascular History: Reports: Other (See Below) Other Cardiovascular History: lower extremity edema, palpitations Respiratory History: Reports: SOB (SOB with exertion) Other Respiratory History: mild to moderate snoring Gastrointestinal History: Reports: GERD, Inflammatory Bowel Disease Genitourinary History: Reports: None Musculoskeletal History: Reports: Other (See Below) Other Musculoskeletal History: sciatica pain, swelling to left leg currently Neurological History: Reports: None Psychiatric History: Reports: ADHD Endocrine/Metabolic History: Reports: Hypothyroidism Hematologic History: Reports: None - Infectious Disease History Infectious Disease History: Reports: Measles - Past Surgical History Head Surgeries/Procedures: Reports: None HEENT Surgical History: Reports: Tonsillectomy Cardiovascular Surgical History: Reports: None Respiratory Surgical History: Reports: None GI Surgical History: Reports: Cholecystectomy Female Surgical History: Reports: Hysterectomy Male Surgical History: Reports: None Endocrine Surgical History: Reports: None Neurological Surgical History: Reports: None Musculoskeletal Surgical History: Reports: Knee Replacement ((L) knee), Shoulder Surgery Oncologic Surgical History: Reports: None Dermatological Surgical History: Reports: None - HOME MEDS Home Medications: Home Meds Levothyroxine 112 mcg PO DAILY 08/24/14 [History] Rivaroxaban [Xarelto] 15 mg PO BID #40 tablet 05/20/17 [Rx] - CURRENT (IN HOUSE) MEDS Current Meds: Current Medications Brimonidine Tartrate (Alphagan 0.2% Ophth Soln) 0 ml EYERT ASDIRECTED JENNY Stop: 01/22/18 18:00 Last Admin: 01/22/18 07:31 Dose: 1 drop Cefuroxime Sodium (Zinacef) 0 mg EYERT ASDIRECTED JENNY Stop: 01/22/18 18:00 Lidocaine HCl (Xylocaine-Mpf 1%) 0 ml INJECT ASDIRECTED JENNY Stop: 01/22/18 18:00 Phenylephrine HCl (Karlo-Synephrine 2.5% Ophth Soln) 0 ml EYERT ASDIRECTED JENNY Stop: 01/22/18 18:00 Last Admin: 01/22/18 07:36 Dose: 1 drop Pilocarpine HCl (Pilocar 4% Ophth Soln) 0 ml EYERT ASDIRECTED JENNY Stop: 01/22/18 18:00 Polymyxin/Trimethoprim Sulfate (Polytrim Ophth Soln) 0 ml EYERT ASDIRECTED JENNY Stop: 01/22/18 18:00 Last Admin: 01/22/18 07:26 Dose: 1 drop Tetracaine HCl (Tetracaine 0.5% Steri-Unit Sandrine) 0 ml EYERT ASDIRECTED JENNY Stop: 01/22/18 18:00 Tropicamide (Mydriacyl 1% Ophth Soln) 0 ml EYERT ASDIRECTED JENNY Stop: 01/25/18 06:01 Discontinued Medications Brimonidine Tartrate (Alphagan 0.2% Ophth Soln) 0 ml EYERT ASDIRECTED JENNY Stop: 12/25/17 18:00 Cefuroxime Sodium (Zinacef) 0 mg EYERT ASDIRECTED JENNY Stop: 12/25/17 18:00 Lidocaine HCl (Xylocaine-Mpf 1%) 0 ml INJECT ASDIRECTED JENNY Stop: 12/25/17 18:00 Phenylephrine HCl (Karlo-Synephrine 2.5% Ophth Soln) 0 ml EYERT ASDIRECTED JENNY Stop: 12/25/17 18:00 Pilocarpine HCl (Pilocar 4% Ophth Soln) 0 ml EYERT ASDIRECTED JENNY Stop: 12/25/17 18:00 Polymyxin/Trimethoprim Sulfate (Polytrim Ophth Soln) 0 ml EYERT ASDIRECTED JENNY Stop: 12/25/17 18:00 Tetracaine HCl (Tetracaine 0.5% Steri-Unit Sandrine) 0 ml EYERT ASDIRECTED JENNY Stop: 12/25/17 18:00 Tropicamide (Mydriacyl 1% Ophth Soln) 0 ml EYERT ASDIRECTED JENNY Stop: 12/25/17 18:00
[2018-01-22] MEDS: Tetracaine HCl/PF 0.5% 4 ML Bottle EYERT SCH ×5 (08:26→08:54)
[2018-01-22] MEDS: Lidocaine 1% PF 2 ML SDV INJECT SCH ×2 (08:29→08:54)
[2018-01-22] MEDS: Cefuroxime 10 MG/ML SYRINGE EYERT SCH ×2 (08:31→09:06)
[2018-01-22] MEDS: Pilocarpine 4% Ophth Soln 15 ML Bot EYERT SCH ×2 (08:31→09:07)
[2018-01-22 09:18] VITALS: BP 114/82
--- NOTE | 2018-01-22 09:18 | PCM48HPAN ---
Post Anesthesia Note - EVALUATION WITHIN 48HRS OF ANESTHETIC Vital Signs in Normal Range: Yes Patient Participated in Evaluation: Yes Respiratory Function Stable: Yes Airway Patent: Yes Cardiovascular Function Stable: Yes Hydration Status Stable: Yes Pain Control Satisfactory: Yes Nausea and Vomiting Control Satisfactory: Yes Mental Status Recovered: Yes
== END 2018-01-22 09:16 | disposition home or self-care (01) ==
LOC: JD.SDS 07:19
PROVIDERS: ATTEND Ophthalmology
DX: H25.811 Combined forms of age-related cataract, right eye (principal); Z98.42 Cataract extraction status, left eye; Z96.1 Presence of intraocular lens; H40.003 Preglaucoma, unspecified, bilateral
CPT/HCPCS: 66984; A9270; C1780; J0697; J2001

== ENCOUNTER 2018-06-17 09:43 | Day surgery (SDC) | payer MEDICARE, BC ==
[~2018-06-17 09:43] MED LIST changes: +Acetaminophen 325 MG Tab PO SCH; +Bisacodyl 5 MG Tab PO PRN; -Brimonidine 0.2% Ophth Soln 5 ML Bottle EYERT SCH; -Cefuroxime 10 MG/ML SYRINGE EYERT SCH; +Cyclobenzaprine 10 MG Tab PO PRN; +Lactated Ringers 1,000 ML IV SCH; -Lidocaine 1% PF 2 ML SDV INJECT SCH; +Lidocaine 1%/Sod Bicarbonate in NS 8.4% 1 ML Syringe IDERM PRN; +Magnesium Hydroxide 400 MG/5 ML Susp 30 ML Cup PO PRN; +Morphine 2 MG/ML Syringe IVPUSH PRN; +Naloxone 0.4 MG/ML SDV IVPUSH PRN; -Phenylephrine 2.5% Ophth Soln 2 ML Bot EYERT SCH; -Pilocarpine 4% Ophth Soln 15 ML Bot EYERT SCH; -Polymyxin B/Trimethoprim 10 ML Bottle EYERT SCH; +Pregabalin 25 MG Cap PO SCH; +Sennosides 8.6 MG Tab PO PRN; +Sodium Chloride 0.9% 10 ML Syringe FLUSH PRN; -Tetracaine HCl/PF 0.5% 4 ML Bottle EYERT SCH; -Tropicamide 1% Ophth Soln 15 ML Bottle EYERT SCH; +oxyCODONE ER 10 MG TAB.ER PO SCH
[2018-06-17] MEDS ORDERED: Midazolam 1 MG/ML 2 ML SDV ONE (10:59)
[2018-06-17] MEDS ORDERED: Propofol 200 MG/20 ML SDV ONE (11:00)
[2018-06-17] MEDS ORDERED: fentaNYL 100 MCG/2 ML SDV ONE (11:00)
[2018-06-17] MEDS ORDERED: Lidocaine 1% 2 ML ONE ×2 (11:02)
--- NOTE | 2018-06-17 11:07 | PCM.PREANE ---
Preanesthetic Assessment - Procedure Proposed Procedure: right total knee - Anesthesia/Transfusion/Family Hx Anesthesia History: Prior Anesthesia Without Reaction Family History of Anesthesia Reaction: No Transfusion History: No Prior Transfusion(s) Intubation History: Unknown - Review of Systems General: No Symptoms Pulmonary: No Symptoms Cardiovascular: No Symptoms Gastrointestinal: No Symptoms Neurological: No Symptoms Other: Reports: Thyroid Problems - Physical Assessment NPO Status Date: 06/16/18 NPO Status Time: 18:00 (sip water with pills) O2 Sat by Pulse Oximetry: 97 Respiratory Rate: 16 Temperature: 98.1 F Vital Signs: Last Vital Signs Temp 98.1 F 06/17/18 10:30 Pulse 81 06/17/18 10:10 Resp 16 06/17/18 10:10 BP 154/73 H 06/17/18 10:10 Pulse Ox 97 06/17/18 10:10 Height: 5 ft 4 in Weight: 76 kg ASA Class: 2 Mental Status: Alert & Oriented x3 Airway Class: Mallampati = 1 Dentition: Reports: Dentures (top and bottom) Thyro-Mental Finger Breadths: 3 Mouth Opening Finger Breadths: 3 ROM/Head Extension: Full Lungs: Clear to Auscultation, Normal Respiratory Effort Cardiovascular: Regular Rate, Regular Rhythm - Lab Values: Laboratory Last Values MRSA (PCR) Negative 05/21/18 12:30 - Allergies Allergies/Adverse Reactions: Allergies Allergy/AdvReac Type Severity Reaction Status Date / Time No Known Allergies Allergy Verified 06/14/18 14:25 - Blood Blood Available: No - Acknowledgements Anesthesia Type Planned: Spinal Pt an Appropriate Candidate for the Planned Anesthesia: Yes Alternatives and Risks of Anesthesia Discussed w Pt/Guardian: Yes Pt/Guardian Understands and Agrees with Anesthesia Plan: Yes PreAnesthesia Questionnaire HEENT History: Reports: Cataract, Hard of Hearing, Other (See Below) Other HEENT History: dentures, glasses, hearing aids Cardiovascular History: Reports: Blood Clots/VTE/DVT, Other (See Below) Other Cardiovascular History: lower extremity edema, palpitations in past due to thyroid, chest wall pain and pressure, fluid retention Other Respiratory History: mild to moderate snoring Gastrointestinal History: Reports: Inflammatory Bowel Disease (in past and now under control), Other (See Below) Other Gastrointestinal History: bloating, bloody stools, diarrhea, dysphagia- in past resolved Genitourinary History: Reports: UTI, Recurrent [employer] History: Reports: Other (See Below) Other OB/BYN History: breast lump, breast biopsy Musculoskeletal History: Reports: Other (See Below) Other Musculoskeletal History: sciatica pain -checked out and they said it is normal- swelling to left leg currently, right knee pain, ac joint spurs, knee chondrocalcinosis, degeneration and tear of meniscus, arthritis, back pain, osteoporosis, rightshoulder pain pain and impingment, knee surgery Neurological History: Reports: None Endocrine/Metabolic History: Reports: Hypothyroidism Hematologic History: Reports: None Immunologic History: Reports: None Oncologic (Cancer) History: Reports: None Dermatologic History: Reports: Other (See Below) Other Dermatologic History: rosacea - Infectious Disease History Infectious Disease History: Reports: Measles - Past Surgical History Head Surgeries/Procedures: Reports: None HEENT Surgical History: Reports: Tonsillectomy Cardiovascular Surgical History: Reports: None Respiratory Surgical History: Reports: None GI Surgical History: Reports: Appendectomy, Cholecystectomy, Colonoscopy Female Surgical History: Reports: Hysterectomy Male Surgical History: Reports: None Endocrine Surgical History: Reports: None Neurological Surgical History: Reports: None Musculoskeletal Surgical History: Reports: Knee Replacement, Shoulder Surgery Oncologic Surgical History: Reports: None Dermatological Surgical History: Reports: None - SUBSTANCE USE Smoking Status *Q: Current Status Unknown (quit 40 years ago) Second Hand Smoke Exposure: No Days Per Week of Alcohol Use: 1 (glass of wine a week) Number of Drinks Per Day: 1 Total Drinks Per Week: 1 Recreational Drug Use History: No - HOME MEDS Home Medications: Home Meds Levothyroxine 112 mcg PO DAILY 08/24/14 [History] Cholecalciferol (Vitamin D3) [Vitamin D3] 5,000 unit PO DAILY 06/14/18 [History] Multivitamin [Poly-Vitamin] 1 tab PO DAILY 06/14/18 [History] - CURRENT (IN HOUSE) MEDS Current Meds: Current Medications Acetaminophen (Tylenol) 975 mg PO ONETIME JENNY Stop: 06/17/18 14:00 Last Admin: 06/17/18 10:30 Dose: 975 mg Bisacodyl (Dulcolax) 5 mg PO DAILY PRN PRN Reason: Constipation Cyclobenzaprine HCl (Flexeril) 10 mg PO TID PRN PRN Reason: Spasms Docusate Sodium (Colace) 100 mg PO BID [facility] Famotidine (Pepcid) 20 mg PO Q12H [facility] Lactated Ringer's (Ringers, Lactated) 1,000 mls @ 125 mls/hr IV ASDIRECTED [facility] Stop: 06/17/18 23:00 Cefazolin Sodium/Dextrose 2 gm (/ Premix) 50 mls @ 100 mls/hr IV Q8H [facility] Stop: 06/17/18 23:29 Ketorolac Tromethamine (Toradol) 15 mg IVPUSH Q6H PRN PRN Reason: Pain Lidocaine/Sodium Bicarbonate (Buffered Lidocaine 1% In Ns 8.4%) 0.25 ml IDERM ONETIME PRN PRN Reason: Prior to IV Start Stop: 06/17/18 18:00 Magnesium Hydroxide (Milk Of Magnesia) 30 ml PO BID PRN PRN Reason: Constipation Morphine Sulfate (Morphine) 2 mg IVPUSH Q2H PRN PRN Reason: Breakthrough Pain Naloxone HCl (Narcan) 0.1 mg IVPUSH Q5M PRN PRN Reason: Oversedation Oxycodone HCl (Oxycontin) 10 mg PO ONETIME [facility] Stop: 06/17/18 14:00 Last Admin: 06/17/18 10:29 Dose: 10 mg Oxycodone/Acetaminophen (Percocet 325-5 Mg) 1 - 2 tab PO Q4H PRN PRN Reason: Pain Pregabalin (Lyrica) 50 mg PO ONETIME [facility] Stop: 06/17/18 14:00 Last Admin: 06/17/18 10:29 Dose: 50 mg Rivaroxaban (Xarelto) 10 mg PO DAILY [facility] Senna (Senna) 8.6 mg PO BID PRN PRN Reason: Constipation Sodium Chloride (Saline Flush) 10 ml FLUSH ASDIRECTED PRN PRN Reason: Keep Vein Open Stop: 06/17/18 18:00 Discontinued Medications Morphine Sulfate 8 mg/Epinephrine HCl 0.3 mg/Cefuroxime Sodium 750 mg/Ketorolac Tromethamine 30 mg/Sodium Chloride 27.9 ml 0 mg .XX ONETIME ONE Stop: 06/17/18 08:31
[2018-06-17] MEDS ORDERED: ceFAZolin 1 GM Vial ONE ×2 (11:30→12:06)
[2018-06-17] MEDS ORDERED: diphenhydrAMINE 50 MG/ML SDV IVPUSH PRN (13:20)
[2018-06-17] MEDS ORDERED: Meperidine 50 MG/ML Vial IVPUSH PRN (13:20)
[2018-06-17] MEDS ORDERED: Ondansetron 4 MG/2 ML SDV IVPUSH PRN (13:20)
[2018-06-17] MEDS ORDERED: fentaNYL 100 MCG/2 ML SDV IVPUSH PRN (13:20)
[2018-06-17] MEDS ORDERED: EPINEPHrine 1 MG/ML SDV ONE (13:37)
[2018-06-17] MEDS ORDERED: Ropivacaine 0.5% 5 MG/ML 30 ML SDV ONE (13:38)
[2018-06-17] MEDS: Iodine/Sodium Iodide 2% Tincture 30 ML Bottle ONE ×2 (13:40→13:58)
[2018-06-17] MEDS: Bupivacaine 0.25% 30 ML SDV ONE ×2 (13:40→14:03)
[2018-06-17] MEDS: ceFAZolin 1 GM Vial ONE ×2 (13:40→14:02)
[2018-06-17] MEDS: Morphine 8 MG, EPINEPHrine 0.3 MG, Cefuroxime 750 MG, Ketorolac 30 MG, Sodium Chloride ... ONE ×10 (13:41→14:06)
[2018-06-17] MEDS: Vancomycin 1 GM SDV ONE ×2 (13:42→14:07)
--- NOTE | 2018-06-17 14:44 | PCM.POSTAN ---
POST ANESTHESIA ASSESSMENT - MENTAL STATUS Mental Status: Alert, Oriented - VITAL SIGNS Pulse Rate: 86 SaO2: 94 Resp Rate: 17 Blood Pressure: 114/63 Temperature: 97.8 C - RESPIRATORY Respiratory Status: Respiratory Rate WNL, Airway Patent, O2 Saturation Stable - CARDIOVASCULAR CV Status: Pulse Rate WNL, Blood Pressure Stable - GASTROINTESTINAL GI Status: No Symptoms - PAIN Pain Score: 0 - POST OP HYDRATION Hydration Status: Adequate & Stable
--- NOTE | 2018-06-17 15:22 | CR ---
Right knee: Two views of the right knee were obtained. Comparison: Previous right knee radiographic exam of 02/19/17. Right knee prosthesis is seen. Components are aligned. Underlying bony structures are intact. Soft tissue air is noted from the surgical procedure. Impression: 1. Satisfactory postop radiographic appearance of recently placed right knee prosthesis. Diagnostic code #2
--- NOTE | 2018-06-17 16:07 | PCM.SN ---
- Free Text/Narrative Note: Right selective femoral nerve block at the adductor canal for post-procedure pain control under US guidance requested by Dr. Hoffman. Time Out: 1443 Start:1448 End: 1451 Chart reviewed. Consent signed. Questions answered. Appropriate monitors applied. Time out performed. Right mid-shaft femur identified with ultrasound, scanning medially of femur, the femoral artery in the adductor canal visualized , and the femoral nerve located laterally to the artery. The skin was prepped lateral to the ultrasound probe with chlorahexadine times two. The 21ga 4 insulated block needle was inserted under direct ultrasound guidance into the adductor canal. 25mL of 0.5% ropivacaine with 1:200,000 epinephrine was injected circumferentially around the nerve with intermittent negative aspiration noted. Patient tolerated the procedure well. Sterile technique noted along with sterile gloves, mask, and sterile probe cover. See picture on progress note and vital signs on nurses notes. Block completed in PACU. Mary Jo Reyna CRNA
--- NOTE | 2018-06-17 16:52 | PCM.SN ---
- Free Text/Narrative Note: Julita is a 77 yo [address] of [address] Hoffman who is post-operative day 0 of R TKA. Hospital medicine was consulted for post-operative medical care. At this time she is stable. Pain is controlled. She denies any chest pain, shortness of breath, palpitations, nausea, or vomiting. She carries a history of: OA, ADHD, DVT, IBS, Osteoporosis, Hypothyroid, [place], Emphysema. She is a previous smoker ( quit 40 years ago). She is a full code. Her PCP is Yana May NP.
[2018-06-17] MEDS: Acetaminophen/oxyCODONE 325-5 MG Tab PO PRN (16:55)
[2018-06-17] MEDS: ceFAZolin 2 GM in Premix Bag 1 BAG IV SCH (20:13)
[2018-06-17] MEDS: Famotidine 20 MG Tab PO SCH (20:16)
[2018-06-17] MEDS: Docusate Sodium 100 MG Cap PO SCH (20:16)
[2018-06-17] MEDS: Ketorolac 15 MG/ML SDV IVPUSH PRN (20:21)
[2018-06-18] MEDS: ceFAZolin 2 GM in Premix Bag 1 BAG IV SCH ×2 (04:19→10:42)
[2018-06-18] MEDS: Acetaminophen/oxyCODONE 325-5 MG Tab PO PRN ×3 (04:22→12:20)
[2018-06-18] MEDS ORDERED: Levothyroxine 112 MCG Tab PO SCH (06:00)
[2018-06-18] MEDS: Ondansetron 4 MG/2 ML SDV IVPUSH PRN ×2 (06:18→12:16)
--- NOTE | 2018-06-18 06:19 | PCM.SN ---
- Free Text/Narrative Note: Julita Garcia is a 77yo female who is post-operative day 1 of right TKA. From a hospitalist standpoint she is doing very well. At this time she is sitting up in the chair. Pain is controlled. She denies any chest pain, palpitations, shortness of breath, dizziness, blurred vision, abdominal pain, vomiting. She did have some very mild nausea in the morning which has since resolved. Physical exam is unremarkable with soft nontender abdomen, regular cardiac rate and rhythm, normal lung sounds in all 4 quadrants. She is neurovascularly intact moving all 4 extremities with good strong 3+ pulses throughout and good sensation. Bandage on her right leg is dry and intact. Labs remained stable with a preoperative hemoglobin of 15.2, now 12.4. Preoperative GFR was 54 and postoperatively remains at 54. Morning medications and past medical history are reviewed. She is off oxygen and has urinated. She is working with therapies and has ambulated. She is clear for discharge pending primary team and PT/OT approval.
[2018-06-18] MEDS: Ketorolac 15 MG/ML SDV IVPUSH PRN (06:20)
[2018-06-18] MEDS: Docusate Sodium 100 MG Cap PO SCH (08:14)
[2018-06-18] MEDS: Famotidine 20 MG Tab PO SCH (08:14)
[2018-06-18] MEDS ORDERED: Cholecalciferol (Vitamin D3) 5,000 UNIT Tab PO SCH (09:00)
[2018-06-18] MEDS ORDERED: Rivaroxaban 10 MG Tab PO SCH (09:00)
--- NOTE | 2018-06-18 09:31 | PCM48HPAN ---
Post Anesthesia Note - EVALUATION WITHIN 48HRS OF ANESTHETIC Vital Signs in Normal Range: Yes Patient Participated in Evaluation: Yes Respiratory Function Stable: Yes Airway Patent: Yes Cardiovascular Function Stable: Yes Hydration Status Stable: Yes Pain Control Satisfactory: Yes Nausea and Vomiting Control Satisfactory: Yes Mental Status Recovered: Yes - COMMENTS/OBSERVATIONS Free Text/Narrative:: Pt doing well resting in the chair. Pain well controlled. Denies any headaches , back pain, or residual numbness/tingling to LE.
[2018-06-18] MEDS ORDERED: Scopolamine 1.5 MG Transdermal Patch TRDERM PRN (10:32)
[2018-06-18 13:10] VITALS: BP 112/48
--- NOTE | 2018-06-19 09:55 | PCM.PN ---
- General Info Date of Service: 06/18/18 Functional Status: Reports: Pain Controlled, Tolerating Diet, Ambulating, Urinating - Patient Data Vitals - Most Recent: Last Vital Signs Temp 36.8 C 06/18/18 13:04 Pulse 81 06/18/18 13:04 Resp 12 06/18/18 13:04 BP 112/48 L 06/18/18 13:04 Pulse Ox 92 L 06/18/18 13:04 Weight - Most Recent: 76 kg Med Orders - Current: Current Medications Discontinued Medications Acetaminophen (Tylenol) 975 mg PO ONETIME [facility] Stop: 06/17/18 14:00 Last Admin: 06/17/18 10:30 Dose: 975 mg Bisacodyl (Dulcolax) 5 mg PO DAILY PRN PRN Reason: Constipation Bupivacaine HCl (Marcaine 0.25%) Confirm Administered Dose 30 ml .ROUTE .STK- MED ONE Stop: 06/17/18 12:07 Last Admin: 06/17/18 14:03 Dose: 30 ml Cefazolin Sodium (Ancef) Confirm Administered Dose 1 gm .ROUTE .STK-MED ONE Stop: 06/17/18 11:31 Last Admin: 06/17/18 14:02 Dose: 2 gm Cefazolin Sodium (Ancef) Confirm Administered Dose 1 gm .ROUTE .STK-MED ONE Stop: 06/17/18 11:31 Cefazolin Sodium (Ancef) Confirm Administered Dose 2 gm .ROUTE .STK-MED ONE Stop: 06/17/18 12:07 Cholecalciferol (Vitamin D3) 5,000 unit PO DAILY [facility] Last Admin: 06/18/18 08:14 Dose: 5,000 unit Morphine Sulfate 8 mg/Epinephrine HCl 0.3 mg/Cefuroxime Sodium 750 mg/Ketorolac Tromethamine 30 mg/Sodium Chloride 27.9 ml 0 mg .XX ONETIME ONE Stop: 06/17/18 08:31 Last Admin: 06/17/18 14:06 Dose: 788.3 mg Cyclobenzaprine HCl (Flexeril) 10 mg PO TID PRN PRN Reason: Spasms Diphenhydramine HCl (Benadryl) 25 mg IVPUSH Q6H PRN PRN Reason: pruritis Stop: 06/17/18 16:00 Docusate Sodium (Colace) 100 mg PO BID [facility] Last Admin: 06/18/18 08:14 Dose: 100 mg Epinephrine HCl (Adrenalin) Confirm Administered Dose 1 mg .ROUTE .STK-MED ONE Stop: 06/17/18 13:38 Famotidine (Pepcid) 20 mg PO Q12H [facility] Last Admin: 06/18/18 08:14 Dose: 20 mg Fentanyl (Sublimaze) Confirm Administered Dose 100 mcg .ROUTE .STK-MED ONE Stop: 06/17/18 11:01 Fentanyl (Sublimaze) 50 mcg IVPUSH Q5M PRN PRN Reason: Pain Stop: 06/17/18 16:00 Lactated Ringer's (Ringers, Lactated) 1,000 mls @ 125 mls/hr IV ASDIRECTED [facility] Stop: 06/17/18 23:00 Last Admin: 06/17/18 10:30 Dose: 125 mls/hr Cefazolin Sodium/Dextrose 2 gm (/ Premix) 50 mls @ 100 mls/hr IV Q8H [facility] Stop: 06/18/18 11:59 Last Admin: 06/18/18 10:42 Dose: 100 mls/hr Lidocaine HCl (Xylocaine-Mpf 1%) Confirm Administered Dose 2 mls @ as directed .ROUTE .STK-MED ONE Stop: 06/17/18 11:03 Lidocaine HCl (Xylocaine-Mpf 1%) Confirm Administered Dose 2 mls @ as directed .ROUTE .STK-MED ONE Stop: 06/17/18 11:03 Iodine (Iodine 2% Mild Tincture) Confirm Administered Dose 30 ml .ROUTE .STK- MED ONE Stop: 06/17/18 12:07 Last Admin: 06/17/18 13:58 Dose: 18 ml Ketorolac Tromethamine (Toradol) 15 mg IVPUSH Q6H PRN PRN Reason: Pain Last Admin: 06/18/18 06:20 Dose: 15 mg Levothyroxine Sodium (Levothyroxine) 112 mcg PO DAILY@0600 [facility] Last Admin: 06/18/18 06:24 Dose: 112 mcg Lidocaine/Sodium Bicarbonate (Buffered Lidocaine 1% In Ns 8.4%) 0.25 ml IDERM ONETIME PRN PRN Reason: Prior to IV Start Stop: 06/17/18 18:00 Last Admin: 06/17/18 10:30 Dose: 0.25 ml Magnesium Hydroxide (Milk Of Magnesia) 30 ml PO BID PRN PRN Reason: Constipation Meperidine HCl (Meperidine) 12.5 mg IVPUSH ASDIRECTED PRN PRN Reason: Shivering Stop: 06/17/18 16:00 Midazolam HCl (Versed 1 Mg/Ml) Confirm Administered Dose 2 mg .ROUTE .STK-MED ONE Stop: 06/17/18 11:00 Miscellaneous Information (Remove Patch) 0 ea TRDERM Q72H [facility] Morphine Sulfate (Morphine) 2 mg IVPUSH Q2H PRN PRN Reason: Breakthrough Pain Naloxone HCl (Narcan) 0.1 mg IVPUSH Q5M PRN PRN Reason: Oversedation Ondansetron HCl (Zofran) 4 mg IVPUSH ONETIME PRN PRN Reason: Nausea/Vomiting Stop: 06/17/18 18:00 Last Admin: 06/17/18 16:56 Dose: 4 mg Ondansetron HCl (Zofran) 4 mg IVPUSH Q6H PRN PRN Reason: Nausea Last Admin: 06/18/18 12:16 Dose: 4 mg Oxycodone HCl (Oxycontin) 10 mg PO ONETIME [facility] Stop: 06/17/18 14:00 Last Admin: 06/17/18 10:29 Dose: 10 mg Oxycodone/Acetaminophen (Percocet 325-5 Mg) 1 - 2 tab PO Q4H PRN PRN Reason: Pain Last Admin: 06/18/18 12:20 Dose: 2 tab Pregabalin (Lyrica) 50 mg PO ONETIME [facility] Stop: 06/17/18 14:00 Last Admin: 06/17/18 10:29 Dose: 50 mg Propofol (Diprivan 20 Ml) Confirm Administered Dose 200 mg .ROUTE .STK-MED ONE Stop: 06/17/18 11:01 Rivaroxaban (Xarelto) 10 mg PO DAILY [facility] Last Admin: 06/18/18 08:14 Dose: 10 mg Ropivacaine (Naropin 0.5%) Confirm Administered Dose 30 ml .ROUTE .STK-MED ONE Stop: 06/17/18 13:39 Scopolamine (Transderm-Scop) 1.5 mg TRDERM Q72H PRN PRN Reason: Nausea Last Admin: 06/18/18 10:42 Dose: 1.5 mg Senna (Senna) 8.6 mg PO BID PRN PRN Reason: Constipation Sodium Chloride (Saline Flush) 10 ml FLUSH ASDIRECTED PRN PRN Reason: Keep Vein Open Stop: 06/17/18 18:00 Tranexamic Acid (Cyklokapron) Confirm Administered Dose 1,000 mg .ROUTE .STK- MED ONE Stop: 06/17/18 12:07 Last Admin: 06/17/18 14:12 Dose: 1,000 mg Vancomycin HCl (Vancomycin) Confirm Administered Dose 1 gm .ROUTE .STK-MED ONE Stop: 06/17/18 12:07 Last Admin: 06/17/18 14:07 Dose: 1 gm - Exam Physical Findings Comments:: patient seated in chair in no acute distress, able to perform a straight leg raise, flex to 90, no calf tenderness, bandage is c/d/i - Problem List Review Problem List Initiated/Reviewed/Updated: Yes - My Orders Last 24 Hours: My Active Orders 06/18/18 09:01 Ready for Discharge [RC] PER UNIT ROUTINE - Plan Plan:: A: POD#1 right total knee P: Patient is doing very well. Will plan on discharge today after PT. Continue plan of care with [facility] for DVT prophylaxis. Will follow up next week Sunday.
--- NOTE | 2018-06-19 09:58 | PCM.OPNOTE ---
- General Post-Op/Procedure Note Date of Surgery/Procedure: 06/17/18 Operative Procedure(s): right total knee arthroplasty Pre Op Diagnosis: right knee osteoarthritis Post-Op Diagnosis: Same Anesthesia Technique: Local, MAC, Spinal Primary Surgeon: Ilia Hoffman Anesthesia Provider: Lenore Esqueda Health Care Coordinator: Terrie Schroeder Health Care Coordinator: Cherri Keller in mLs: 15 Complications: None Condition: Good Free Text/Narrative:: size 5 PS femur size 4 tibia cemented 9mm 32x10
--- NOTE | 2018-06-19 10:58 | OR ---
DATE OF OPERATION: 06/17/2018 SURGEON: Ilia Hoffman MD OPERATION PERFORMED: Right total knee arthroplasty. DICTATION ENDS HERE. PREOPERATIVE DIAGNOSIS: POSTOPERATIVE DIAGNOSIS: ANESTHESIA: ESTIMATED BLOOD LOSS: DESCRIPTION OF PROCEDURE: MMODAL /[id number]
--- NOTE | 2018-06-20 07:16 | OR ---
DATE OF OPERATION: 06/17/2018 SURGEON: Ilia Hoffman MD OPERATION PERFORMED: Right total knee arthroplasty. PREOPERATIVE DIAGNOSIS: Right knee osteoarthrosis. POSTOPERATIVE DIAGNOSIS: Right knee osteoarthrosis. ANESTHESIA: Local MAC with spinal. ANESTHESIA PROVIDER: Lenore Esqueda CRNA. SINGING TELEGRAM PERFORMER: Terrie Schroeder PA-C, and Cherri Keller LPN. ESTIMATED BLOOD LOSS: 15 mL. COMPLICATIONS: None. CONDITION: Stable. IMPLANTS: 1. [place] size 5 cemented PS femur. 2. [place] size 4 cemented tibial base plate. 3. [place] size 4 9 mm PS X3 polyethylene. 4. [place] size 32 x 10 mm cemented patella. DESCRIPTION OF PROCEDURE: The patient was identified in the preop holding area. Proper site was marked and identified by the surgeon. The patient was taken back to the operating theater. After adequate anesthesia, the patient's right lower extremity had a nonsterile tourniquet applied and it was sterilely prepped and draped in the usual sterile fashion. OR time-out was performed. The patient received 2 g IV Ancef. At this time, the right lower extremity was exsanguinated. Tourniquet was insufflated to 300 mmHg. Standard medial parapatellar incision was made. Medial parapatellar arthrotomy was created. Deep fibers of the MCL were raised and anterior fat pad was resected. At this time, attention was turned to the patella. Patella measured 24, and it was resected to a 14 for a 32 x 10 mm patella. Drill holes were then drilled and found to be in adequate position. The drill was then drilled in the distal femur and the intramedullary distal femoral cutting guide was then placed. 8 mm was resected off the distal femur and was found to be an adequate resection. Sizing guide was placed. It was found to be a size 5 femur that was shown on the implant record at the beginning of this dictation. The drill holes were drilled for the epicondylar axis using [place] line and epicondyles as reference. At this time, the 4-in-1 cutting block was placed. An anterior posterior and anterior and posterior chamfer cuts were then completed. At this time the box cut was completed. Attention was turned to the tibia. The posterior medial lateral retractors were placed. The extramedullary tibial guide was placed. It was placed in the old footprint of the ACL. It was aligned with the center of the ankle and 3 degrees of slope, 9 mm was then resected off the unaffected side. There was found to be an acceptable reduction. At this time, posterior osteophytes were removed along with medial and lateral meniscus. A trial implant was placed with a correct sized tibia that was mentioned at the beginning of the dictation. A [place] size 4 9 mm CS polyethylene trial was then placed. The patient's knee was brought through range of motion. The patella was tracking centrally and was stable to varus and valgus stress. Alignment was found to be roughly at 0 degrees. The tibia was stamped and drilled in proper rotation. Cement was mixed on the back table. The universal tibial base plate was impacted in place. Next, the [place] size 5 cemented PS femur impacted into place and the [place] size 4 9 mm CS polyethylene insert was placed. The patient's knee was brought into full extension. Execess cement was removed. The patella was then cemented in place at this time. One liter dilute Betadine solution was irrigated through the knee along with 3 L of pulse lavage irrigation with Ancef. Periarticular injection was then completed. The patient's knee was brought through a range of motion. Once the cement had time to set up and it was found to be stable to varus valgus stress, the patella was tracking centrally with full range of motion. At this time, a #2 barbed suture was used for closure of the medial parapatellar arthrotomy. Topical tranexamic acid was placed. 2-0 Vicryl was used subcutaneously, Prineo was used for the skin. The patient tolerated the procedure well and was sent to the PACU in stable condition. MMODAL /[id number]
== END 2018-06-18 14:45 | disposition home or self-care (01) ==
LOC: JD.SDS 09:43 → JD.MS 09:46 → JD.SDS 06-18 14:45
PROVIDERS: ATTEND Orthopaedic Surgery
DX: M17.11 Unilateral primary osteoarthritis, right knee (principal); J43.9 Emphysema, unspecified; E03.9 Hypothyroidism, unspecified; Z87.891 Personal history of nicotine dependence; Z79.01 Long term (current) use of anticoagulants; Z79.899 Other long term (current) drug therapy
CPT/HCPCS: 27447; 36415; 73560; 80053; 85027; 87641; 97110; 97116; 97162; 97165; 97535; A9270; C1713; C1776; J0171; J0690; J0697; J1885; J2001; J2250; J2270; J2405; J2704; J2795; J3010; J3370; J3490; J7120; 01402; 64450